=== PATIENT | female | born 1960 | race Caucasian/White ===

== ENCOUNTER → 2017-02-25 09:59 | Outpatient (CLI) | payer MEDICAID ==
[2016-03-12 18:25] VITALS: BMI 36.1
[~2017-02-25 09:59] MED LIST: ALBUTEROL0.63 MG/3 INH; BENZONATATE200 MG PO; CELEXA20 MG PO; CIPRO500 MG PO; DULERA 200 MCG8.8 GM INH; FLUTICASONE PRO16 GM NASAL; IPRAT-ALBUT 0.5-3 ML INH; LACTINEX GRANUL1 PCK PO; MEDROL DOSE PACK4 MG PO; MOBIC7.5 MG PO; MUCINEX DM ER1 EAC1 PO; NICODERM C1 PATCH .2 TRANSDERM; PERFOROMIS20 MCG/21 UPD; PREDNISONE20 MG PO; PROTONIX40 MG PO; PROVENTIL/2.5 MG/3 M INH; PULMICORT0.25 MG/1 UPD; PULMICORT0.5 MG/21 UPD; SINGULAIR10 MG PO; STERAPRED DS 1010 MG PO; SYMBICORT 16010.2 GM INH; TESSALON PERLE100 MG PO; TUDORZA PRESS400 MCG INH; TUMS500 MG PO; ZITHROMAX250 MG PO; ZYRTEC10 MG PO
== END | disposition home or self-care (01) ==
LOC: D.RT 09:59
DX: J44.9 Chronic obstructive pulmonary disease, unspecified (principal)

== ENCOUNTER 2018-01-28 21:21 | Inpatient (IN) | payer MEDICARE ==
[~2018-01-28] VITALS: Ht 162.6 cm; Wt 71.4 kg
[2018-01-28 22:12] LABS: BASOPHILS 0.9 % (0-2); EOSINOPHILS 3.9 % (0-7); HEMATOCRIT 39.3 % (36.0-48.0); HEMOGLOBIN 12.9 g/dL (12-16); LYMPHOCYTES 32.1 % (15-50); MCH 30.4 pg (26.0-34.0); MCHC 32.8 g/dL (31.0-37.0); MCV 92.7 fL (80.0-100.0); MEAN PLATELET VOLUME 9.7 fL (7.4-10.4); MONOCYTES 7.8 % (2-11); NEUTROPHILS 55.3 % (40-80); PLATELET COUNT 216 10x3/uL (130-400); RBC 4.24 10x6/uL (4.00-5.40); WBC 6.7 10x3/uL (4.8-10.8)
[2018-01-28 22:33] LABS: ALBUMIN 3.5 g/dL (3.4-5.0); ANION GAP 12.2 mmol/L (8-16); BILIRUBIN - TOTAL 0.26 mg/dL (0.2-1.3); CALCIUM 8.8 mg/dL (8.5-10.1); CARBON DIOXIDE 28.7 mmol/L (21.0-32.0); POTASSIUM - SERUM 3.9 mmol/L (3.5-5.1); PROTEIN - SERUM 7.2 g/dL (6.4-8.2)
[2018-01-28 22:52] LABS: CKMB 1.3 U/L (0.0-3.6); CREATINE KINASE 136 UL (21-215)
[2018-01-28 22:53] LABS: TROPONIN-I < 0.017 ng/mL (0.000-0.060)
[2018-01-29] MEDS ORDERED: ARNUITY ELLIP200 MCG INH (01:34)
[2018-01-29] MEDS ORDERED: ROPINIROLE HCL2 MG PO (01:35)
[2018-01-29] MEDS ORDERED: DALIRESP500 MCG PO (01:35)
[2018-01-29] MEDS ORDERED: PEPCID20 MG PO (01:37)
[2018-01-29] MEDS ORDERED: STIOLTO RESPIMAT4 GM INH (01:37)
[2018-01-29 02:17] VITALS: BP 123/72; BMI 36.1
[2018-01-29 04:00] VITALS: BP 109/62
[2018-01-29 08:57] VITALS: BP 120/60
[2018-01-29 09:57] VITALS: Ht 162.6 cm; Wt 71.4 kg
[2018-01-29 12:16] VITALS: BP 120/70
[2018-01-29 16:10] VITALS: BP 112/70
[2018-01-29 16:58] LABS: T4 THYROXIN - FREE 1.12 ng/dL (0.76-1.46); THYROID STIMULATING HORMONE 1.02 uIU/mL (0.36-3.74)
[2018-01-29 20:00] VITALS: BP 125/64
[2018-01-30 04:00] VITALS: BP 114/71
[2018-01-30 05:12] LABS: BASOPHILS 0 % (0-2); EOSINOPHILS 0 % (0-7); IMMATURE GRANULOCYTES 0.7 % (0-5); LYMPHOCYTES 6.6 % (15-50); MCH 29.8 pg (26.0-34.0); MCHC 32.4 g/dL (31.0-37.0); MCV 91.8 fL (80.0-100.0); MEAN PLATELET VOLUME 9.8 fL (7.4-10.4); MONOCYTES 5.2 % (2-11); NEUTROPHILS 87.5 % (40-80); PLATELET COUNT 219 10x3/uL (130-400); RBC 4.03 10x6/uL (4.00-5.40); RDW 12.9 % (11.5-14.5)
[2018-01-30 05:24] LABS: WBC 12.2 10x3/uL (4.8-10.8)
[2018-01-30 05:37] LABS: ANION GAP 13.7 mmol/L (8-16); CALCIUM 9.2 mg/dL (8.5-10.1); CARBON DIOXIDE 27.4 mmol/L (21.0-32.0); MAGNESIUM - SERUM 1.9 mg/dL (1.8-2.4); PHOSPHOROUS 3.3 mg/dL (2.5-4.9); POTASSIUM - SERUM 4.1 mmol/L (3.5-5.1)
[2018-01-30 09:35] VITALS: BP 118/63
[2018-01-30 12:10] LABS: APPEARANCE SLT CLOUDY (CLEAR); BILIRUBIN NEGATIVE (NEGATIVE); COLOR YELLOW (YELLOW); GLUCOSE NEGATIVE (NEGATIVE); KETONE NEGATIVE (NEGATIVE); NITRITE NEGATIVE (NEGATIVE); PROTEIN NEGATIVE (NEGATIVE); SPECIFIC GRAVITY 1.015 (1.005-1.020); UROBILINOGEN NORMAL (NORMAL)
[2018-01-30 18:42] VITALS: BP 121/63
[2018-01-30 20:00] VITALS: BP 120/72
[2018-01-31] VITALS: BP 130/73
[2018-01-31 04:00] VITALS: BP 150/80
[2018-01-31 06:08] LABS: ANION GAP 12.1 mmol/L (8-16); CALCIUM 9.4 mg/dL (8.5-10.1); CARBON DIOXIDE 26.9 mmol/L (21.0-32.0); CREATININE - SERUM 1.1 mg/dL (0.6-1.3)
[2018-01-31 06:09] LABS: BASOPHILS 0.1 % (0-2); EOSINOPHILS 0.1 % (0-7); HEMATOCRIT 36.8 % (36.0-48.0); HEMOGLOBIN 11.8 g/dL (12-16); IMMATURE GRANULOCYTES 1.4 % (0-5); LYMPHOCYTES 6.7 % (15-50); MCH 29.7 pg (26.0-34.0); MCHC 32.1 g/dL (31.0-37.0); MCV 92.7 fL (80.0-100.0); MONOCYTES 6.3 % (2-11); NEUTROPHILS 85.4 % (40-80); PLATELET COUNT 249 10x3/uL (130-400); RBC 3.97 10x6/uL (4.00-5.40); RDW 13.2 % (11.5-14.5)
[2018-01-31 06:20] LABS: WBC 15.6 10x3/uL (4.8-10.8)
[2018-01-31 09:35] VITALS: BP 119/69
[2018-01-31 12:26] VITALS: BP 130/67
[2018-01-31 16:57] VITALS: BP 138/76
[2018-01-31 21:06] VITALS: BP 133/67
[2018-02-01 01:14] VITALS: BP 131/87
[2018-02-01 05:05] VITALS: BP 152/84
[2018-02-01 05:13] LABS: BASOPHILS 0.1 % (0-2); EOSINOPHILS 0 % (0-7); HEMOGLOBIN 12.2 g/dL (12-16); IMMATURE GRANULOCYTES 2.8 % (0-5); LYMPHOCYTES 7.2 % (15-50); MCH 29.8 pg (26.0-34.0); MCHC 32.1 g/dL (31.0-37.0); MCV 92.7 fL (80.0-100.0); MEAN PLATELET VOLUME 9.6 fL (7.4-10.4); MONOCYTES 5.7 % (2-11); NEUTROPHILS 84.2 % (40-80); PLATELET COUNT 267 10x3/uL (130-400); RDW 13.1 % (11.5-14.5); WBC 14.8 10x3/uL (4.8-10.8)
[2018-02-01 05:34] LABS: CALCIUM 8.9 mg/dL (8.5-10.1); CARBON DIOXIDE 25.8 mmol/L (21.0-32.0); CREATININE - SERUM 1.2 mg/dL (0.6-1.3)
[2018-02-01 05:40] LABS: ANION GAP 15.3 mmol/L (8-16); POTASSIUM - SERUM 4.1 mmol/L (3.5-5.1)
[2018-02-01 08:27] VITALS: BP 145/82
[2018-02-01 11:12] VITALS: BP 133/62
[2018-02-01 16:18] VITALS: BP 136/76
[2018-02-01 19:00] VITALS: BP 139/72
[2018-02-02 01:10] VITALS: BP 116/60
[2018-02-02 05:28] VITALS: BP 127/64
[2018-02-02 08:11] LABS: BASOPHILS 0.1 % (0-2); EOSINOPHILS 0 % (0-7); HEMOGLOBIN 11.9 g/dL (12-16); IMMATURE GRANULOCYTES 3.2 % (0-5); LYMPHOCYTES 11.5 % (15-50); MCH 29.8 pg (26.0-34.0); MCHC 32.2 g/dL (31.0-37.0); MCV 92.7 fL (80.0-100.0); MEAN PLATELET VOLUME 9.6 fL (7.4-10.4); MONOCYTES 10.1 % (2-11); NEUTROPHILS 75.1 % (40-80); PLATELET COUNT 258 10x3/uL (130-400); RBC 3.99 10x6/uL (4.00-5.40); RDW 13.3 % (11.5-14.5); WBC 13.3 10x3/uL (4.8-10.8)
[2018-02-02 08:25] LABS: ANION GAP 9.6 mmol/L (8-16); CARBON DIOXIDE 29.9 mmol/L (21.0-32.0); CREATININE - SERUM 0.9 mg/dL (0.6-1.3); POTASSIUM - SERUM 3.5 mmol/L (3.5-5.1)
[2018-02-02 09:27] VITALS: BP 155/97
[2018-02-02 12:09] VITALS: BP 151/80
[2018-02-02] MEDS ORDERED: PROTONIX40 MG PO (14:33)
[2018-02-02] MEDS ORDERED: Levaquin PO (14:35)
[2018-02-02] MEDS ORDERED: PREDNISONE20 MG PO (14:35)
[2018-02-02 15:05] VITALS: BP 128/71
== END 2018-02-02 17:29 | disposition home or self-care (01) | DRG 177 ==
LOC: D.ER 21:21 → D.EDHOLD 23:11 → D.M2 23:11
PROVIDERS: Family Medicine; Internal Medicine Nephrology
DX: J15.6 Pneumonia due to other Gram-negative bacteria (principal); J96.21 Acute and chronic respiratory failure with hypoxia; J44.0 Chronic obstructive pulmonary disease with (acute) lower respiratory infection; F17.203 Nicotine dependence unspecified, with withdrawal; J44.1 Chronic obstructive pulmonary disease with (acute) exacerbation; J15.212 Pneumonia due to Methicillin resistant Staphylococcus aureus; F32.9 Major depressive disorder, single episode, unspecified; K21.9 Gastro-esophageal reflux disease without esophagitis

== ENCOUNTER → 2018-03-12 07:47 | Outpatient (CLI) | payer MEDICARE ==
[2018-01-29 09:57] VITALS: BMI 36.1
[~2018-03-12 07:47] MED LIST changes: +ARNUITY ELLIP200 MCG INH; +DALIRESP500 MCG PO; +Levaquin PO; +PEPCID20 MG PO; +ROPINIROLE HCL2 MG PO; +STIOLTO RESPIMAT4 GM INH
== END | disposition home or self-care (01) ==
LOC: D.RT 03-10 10:00 → D.RAD 03-10 11:00 → D.RT 07:47
DX: J44.9 Chronic obstructive pulmonary disease, unspecified (principal)

== ENCOUNTER 2018-06-10 07:00 | Inpatient (IN) | payer MEDICARE ==
[2018-06-09 11:09] LABS: BASOPHILS 0.4 % (0-2); HEMATOCRIT 40.5 % (36.0-48.0); HEMOGLOBIN 13.1 g/dL (12-16); IMMATURE GRANULOCYTES 0.1 % (0-5); LYMPHOCYTES 15.1 % (15-50); MCH 29.6 pg (26.0-34.0); MCHC 32.3 g/dL (31.0-37.0); MCV 91.6 fL (80.0-100.0); MONOCYTES 7.6 % (2-11); NEUTROPHILS 73.8 % (40-80); PLATELET COUNT 253 10x3/uL (130-400); RBC 4.42 10x6/uL (4.00-5.40); RDW 13.7 % (11.5-14.5); WBC 9.7 10x3/uL (4.8-10.8)
[2018-06-09 11:29] LABS: ANION GAP 12.5 mmol/L (8-16); CALCIUM 8.9 mg/dL (8.5-10.1); CARBON DIOXIDE 30.5 mmol/L (21.0-32.0)
[~2018-06-10] VITALS: Ht 162.6 cm; Wt 95.7 kg
--- NOTE | ~2018-06-10 | OP ---
PATIENT NAME: AYAKA BRANTLEY MEDICAL RECORD: [id number] :64 LOCATION:D.MS [id number] ADMISSION DATE:06/10/18 SURGEON: EDDIE PEDRO MD DATE OF OPERATION: 06/10/2018 PREOPERATIVE DIAGNOSES: 1. Right colon polyp. 2. Chronic obstructive pulmonary disease. 3. Asthma. 4. Tobacco dependence syndrome. 5. Morbid obesity. POSTOPERATIVE DIAGNOSES: 1. Right colon polyp. 2. Chronic obstructive pulmonary disease. 3. Asthma. 4. Tobacco dependence syndrome. 5. Morbid obesity. PROCEDURE: Hand-assisted laparoscopic right hemicolectomy. SURGEON: Eddie Pedro MD REPORT OF PROCEDURE: The patient's abdomen was prepped and draped in sterile fashion. A cutdown was made around the patient's umbilicus. Electrocautery was used to dissect through the subcutaneous tissues to penetrate the abdominal cavity. A GelPort was then inserted in the abdomen with a 5-mm trocar within it. We insufflated the abdomen and we were then able to place 5-mm trocars in the epigastrium in the right subcostal region under direct visualization. We then began our dissection of the right colon by taking down the white line of Toldt. We continued our dissection around to the hepatic flexure and release these attachments. As we released this, we noted there was some omentum that was adherent to the pelvis from previous surgery and these adhesions were released using electrocautery. We eventually were able to mobilize the colon completely medially including the small bowel. We then eviscerated the right colon, proximal transverse colon, and small bowel through the Gelport. The small bowel was transected about 5 cm proximal to the terminal ileum and the transverse colon was transected proximally. Both these were done with a 60 blue load VICTORINA stapler. The mesentery was taken down with sequential clamp and tie technique using interrupted 3-0 silks. We then sent this large bowel off for pathology. A vwbx-gv-ehsa anastomosis was performed using a 60 blue load VICTORINA stapler and the enterotomies were closed with a 30 blue load TA stapler. As we irrigated out the abdomen and inspected, it appeared that the bowel was twisted. We eventually eviscerated all the bowel out again and could see that the small bowel at the anastomosis had been twisted. During this portion of the procedure, there were a few rents made in the distal aspect of the small bowel mesentery. Any bleeding from these was treated with 3-0 silk ties. We eventually just took down the anastomosis, repositioned the bowel appropriately and assured that it was not twisted and then removed the distal 30 cm of small bowel where the mesenteric rents were present. The mesentery was taken down with sequential clamp and tie technique with 3-0 silks and the small bowel was transected with a 60 blue load VICTORINA stapler. We then performed a npeq-mi-ulcz anastomosis of the transverse colon to the small bowel using a 60 blue load VICTORINA stapler and the enterotomy was closed with a 30 blue load TA stapler. We oversewed the suture lines using Lemberted 3-0 silks. At this point, we OPERATIVE REPORT [id number] AYAKA BRANTLEY reinspected and saw that the bowel was resting in good position and was no longer twisted. There was no sign of any active bleeding at the conclusion of the case. We irrigated out the abdomen one last time. At this point, the midline fascia was closed with running #1 loop PDS times 2 and the skin incisions were all closed with apolinar. COMPLICATIONS: None. CONDITION: Stable. ANESTHESIA: General endotracheal. BLOOD LOSS: 100 mL. TRANSINT:[id number] Voice Confirmation ID: [id number] DOCUMENT ID: [id number] EDDIE PEDRO MD at 1110 CC: BHUPINDER HOFF MD [id number] DICTATION DATE: 06/10/18 1359 INFORMATICS EDUCATOR: 06/10/18 1440 ADM IN [facility] [id number] [place] [address]
[2018-06-10 08:28] VITALS: BP 101/64; BMI 36.3
[2018-06-10 14:34] VITALS: BP 98/52
[2018-06-10 16:09] VITALS: BP 106/67
[2018-06-10 20:00] VITALS: BP 99/47
[2018-06-11 04:00] VITALS: BP 102/46
[2018-06-11 06:40] LABS: BASOPHILS 0.1 % (0-2); EOSINOPHILS 0 % (0-7); IMMATURE GRANULOCYTES 0.3 % (0-5); LYMPHOCYTES 12.5 % (15-50); MCH 28.7 pg (26.0-34.0); MCV 92.4 fL (80.0-100.0); MEAN PLATELET VOLUME 9.5 fL (7.4-10.4); MONOCYTES 13.1 % (2-11); PLATELET COUNT 280 10x3/uL (130-400); WBC 10.4 10x3/uL (4.8-10.8)
[2018-06-11 06:54] LABS: RBC 3.14 10x6/uL (4.00-5.40)
[2018-06-11 07:32] LABS: ANION GAP 11.4 mmol/L (8-16); CALCIUM 7.8 mg/dL (8.5-10.1); CARBON DIOXIDE 28.2 mmol/L (21.0-32.0); POTASSIUM - SERUM 4.6 mmol/L (3.5-5.1)
[2018-06-11 08:13] VITALS: BP 78/48
[2018-06-11 12:04] VITALS: BP 78/43
[2018-06-11 14:21] VITALS: Ht 162.6 cm; Wt 95.7 kg
[2018-06-11 15:43] VITALS: BP 77/45
[2018-06-11 20:00] VITALS: BP 95/42
[2018-06-12 04:00] VITALS: BP 96/58
[2018-06-12 06:05] LABS: BASOPHILS 0.1 % (0-2); EOSINOPHILS 0 % (0-7); HEMATOCRIT 24.6 % (36.0-48.0); HEMOGLOBIN 7.6 g/dL (12-16); IMMATURE GRANULOCYTES 0.3 % (0-5); LYMPHOCYTES 8.8 % (15-50); MCH 28.9 pg (26.0-34.0); MCHC 30.9 g/dL (31.0-37.0); MCV 93.5 fL (80.0-100.0); MEAN PLATELET VOLUME 9.3 fL (7.4-10.4); MONOCYTES 9.6 % (2-11); NEUTROPHILS 81.2 % (40-80); PLATELET COUNT 226 10x3/uL (130-400); RBC 2.63 10x6/uL (4.00-5.40); RDW 14.1 % (11.5-14.5)
[2018-06-12 06:16] LABS: ANION GAP 10.6 mmol/L (8-16); CALCIUM 7.6 mg/dL (8.5-10.1); CARBON DIOXIDE 25.9 mmol/L (21.0-32.0); CREATININE - SERUM 1.1 mg/dL (0.6-1.3); POTASSIUM - SERUM 4.5 mmol/L (3.5-5.1)
[2018-06-12 06:20] LABS: WBC 14.6 10x3/uL (4.8-10.8)
[2018-06-12 08:24] VITALS: BP 94/48
[2018-06-12 12:18] VITALS: BP 113/64
[2018-06-12 15:52] VITALS: BP 98/65
[2018-06-12 21:00] VITALS: BP 124/66
[2018-06-13] VITALS (12 sets, daily range): BP systolic 104–158; BP diastolic 60–87
[2018-06-13 06:12] LABS: BASOPHILS 0.3 % (0-2); EOSINOPHILS 1.5 % (0-7); HEMATOCRIT 24.3 % (36.0-48.0); IMMATURE GRANULOCYTES 0.4 % (0-5); LYMPHOCYTES 9.8 % (15-50); MCH 29.4 pg (26.0-34.0); MCHC 30.9 g/dL (31.0-37.0); MCV 95.3 fL (80.0-100.0); MEAN PLATELET VOLUME 9.2 fL (7.4-10.4); MONOCYTES 9.3 % (2-11); NEUTROPHILS 78.7 % (40-80); PLATELET COUNT 216 10x3/uL (130-400); RBC 2.55 10x6/uL (4.00-5.40); RDW 14.2 % (11.5-14.5)
[2018-06-13 06:15] LABS: WBC 10.4 10x3/uL (4.8-10.8)
[2018-06-13 06:17] LABS: HEMOGLOBIN 7.5 g/dL (12-16)
[2018-06-13 06:30] LABS: CALCIUM 7.9 mg/dL (8.5-10.1); CARBON DIOXIDE 26.1 mmol/L (21.0-32.0); CHLORIDE - SERUM 108 mmol/L (98-107); GLUCOSE 76 mg/dL (74-106); POTASSIUM - SERUM 3.9 mmol/L (3.5-5.1); SODIUM 140 mmol/L (136-145); eGFR NON AFRICAN AMERICAN 78 mL/min (90-120)
[2018-06-13 06:32] LABS: CALC OSMOLALITY 277 mosm/kg (275-300); CREATININE - SERUM 0.8 mg/dL (0.6-1.3); UREA NITROGEN 12 mg/dL (7-18)
[2018-06-14] VITALS: BP 157/84
[2018-06-14 04:00] VITALS: BP 163/87
[2018-06-14 05:46] LABS: BASOPHILS 0.1 % (0-2); EOSINOPHILS 2.4 % (0-7); IMMATURE GRANULOCYTES 0.4 % (0-5); LYMPHOCYTES 12.3 % (15-50); MCH 28.7 pg (26.0-34.0); MCHC 31.6 g/dL (31.0-37.0); MEAN PLATELET VOLUME 9.7 fL (7.4-10.4); MONOCYTES 10.3 % (2-11); NEUTROPHILS 74.5 % (40-80); PLATELET COUNT 221 10x3/uL (130-400)
[2018-06-14 05:52] LABS: HEMATOCRIT 29.7 % (36.0-48.0); HEMOGLOBIN 9.4 g/dL (12-16); MCV 90.8 fL (80.0-100.0); RBC 3.27 10x6/uL (4.00-5.40)
[2018-06-14 06:15] LABS: CALC OSMOLALITY 275 mosm/kg (275-300); CALCIUM 8.2 mg/dL (8.5-10.1); CHLORIDE - SERUM 107 mmol/L (98-107); CREATININE - SERUM 0.7 mg/dL (0.6-1.3); GLUCOSE 71 mg/dL (74-106); POTASSIUM - SERUM 3.6 mmol/L (3.5-5.1); SODIUM 140 mmol/L (136-145); UREA NITROGEN 10 mg/dL (7-18); eGFR NON AFRICAN AMERICAN > 90 mL/min (90-120)
[2018-06-14 09:03] VITALS: BP 137/81
[2018-06-14] MEDS ORDERED: PERCOCET 5-3251 TAB PO (10:42)
== END 2018-06-14 15:49 | disposition home or self-care (01) | DRG 329 ==
LOC: D.MS 07:00 → D.SDCHOLD 07:00 → D.MS 14:06
PROVIDERS: Surgery
PROC: 0DTF0ZZ Resection of Right Large Intestine, Open Approach (ICD-10-PCS; principal; 2018-06-10 09:30)
DX: K63.5 Polyp of colon (principal); J96.21 Acute and chronic respiratory failure with hypoxia; J44.1 Chronic obstructive pulmonary disease with (acute) exacerbation; D62 Acute posthemorrhagic anemia; F17.200 Nicotine dependence, unspecified, uncomplicated; K21.9 Gastro-esophageal reflux disease without esophagitis; E86.0 Dehydration; E66.01 Morbid (severe) obesity due to excess calories; Z68.36 Body mass index [BMI] 36.0-36.9, adult

== ENCOUNTER → 2018-10-17 16:39 | Outpatient (CLI) | payer MEDICARE ==
[2018-06-11 14:21] VITALS: BMI 36.2
[~2018-10-17 16:39] MED LIST changes: +PERCOCET 5-3251 TAB PO
== END | disposition home or self-care (01) ==
LOC: D.MAMMO 13:00
DX: Z12.31 Encounter for screening mammogram for malignant neoplasm of breast (principal)

== ENCOUNTER 2019-01-21 13:26 | Inpatient (IN) | payer MEDICARE ==
[~2019-01-21] VITALS: Ht 162.6 cm; Wt 86.4 kg
[2019-01-21] MEDS ORDERED: SINEMET 25-2501 EACH PO (13:32)
[2019-01-21 13:56] LABS: BASOPHILS 0.8 % (0-2); HEMATOCRIT 40.9 % (36.0-48.0); HEMOGLOBIN 13.3 g/dL (12-16); IMMATURE GRANULOCYTES 0.2 % (0-5); LYMPHOCYTES 22.4 % (15-50); MCH 30.2 pg (26.0-34.0); MCHC 32.5 g/dL (31.0-37.0); MCV 92.7 fL (80.0-100.0); MEAN PLATELET VOLUME 9.4 fL (7.4-10.4); MONOCYTES 12.4 % (2-11); NEUTROPHILS 63.2 % (40-80); PLATELET COUNT 186 10x3/uL (130-400); RBC 4.41 10x6/uL (4.00-5.40); RDW 14.4 % (11.5-14.5); WBC 4.9 10x3/uL (4.8-10.8)
[2019-01-21 14:00] VITALS: BP 162/97
[2019-01-21 14:13] LABS: ALBUMIN 3.5 g/dL (3.4-5.0); ANION GAP 13.6 mmol/L (8-16); BILIRUBIN - TOTAL 0.16 mg/dL (0.2-1.3); CALCIUM 8.8 mg/dL (8.5-10.1); CARBON DIOXIDE 26.1 mmol/L (21.0-32.0); CREATININE - SERUM 0.9 mg/dL (0.6-1.3); POTASSIUM - SERUM 4.7 mmol/L (3.5-5.1); PROTEIN - SERUM 7.2 g/dL (6.4-8.2)
[2019-01-21 14:50] LABS: CKMB 1.4 U/L (0.0-3.6); CREATINE KINASE 115 UL (21-215); PRO BNP 58 pg/mL (0-125); TROPONIN-I 0.021 ng/mL (0.000-0.060)
[2019-01-21 15:00] VITALS: BP 119/74
[2019-01-21 15:59] LABS: APTT 24.5 SECONDS (22.8-39.4); INR 2.08 (0.85-1.17); PROTIME 22.7 SECONDS (11.6-15.0)
[2019-01-21 18:00] VITALS: BP 107/81
--- NOTE | 2019-01-21 18:00 | NUR ---
PROVIDED SANDWICH AND DRINK.
--- NOTE | 2019-01-21 19:00 | NUR ---
PT REPORT HANDED OFF TO FLORENCE MURILLO AT THIS TIME. PT STABLE, CALL LIGHT WITHIN REACH.
[2019-01-21 20:00] VITALS: BP 118/74
--- NOTE | 2019-01-21 21:15 | NUR ---
ADMITTED TO ROOM FROM ER ALERT AND ORIENTIATED, STATES HAVING DIFFICULTY BREATHING, USES O2 AT HOME, MILD EXP WHEEZING NOTED, O2 AT 2L NC, SEE ADMISSION ASSESSMENT, CALL LIGHT IN REACH
[2019-01-22] VITALS (7 sets, daily range): BP systolic 112–130; BP diastolic 60–80; Ht 162.6 cm; Wt 86.4 kg
[2019-01-22 06:43] LABS: BASOPHILS 0 % (0-2); EOSINOPHILS 0 % (0-7); HEMATOCRIT 38.6 % (36.0-48.0); HEMOGLOBIN 12.8 g/dL (12-16); LYMPHOCYTES 14.7 % (15-50); MCH 30.1 pg (26.0-34.0); MCHC 33.2 g/dL (31.0-37.0); MCV 90.8 fL (80.0-100.0); MEAN PLATELET VOLUME 9.8 fL (7.4-10.4); NEUTROPHILS 82.3 % (40-80); PLATELET COUNT 213 10x3/uL (130-400); RBC 4.25 10x6/uL (4.00-5.40); RDW 14.6 % (11.5-14.5)
[2019-01-22 06:44] LABS: WBC 3.3 10x3/uL (4.8-10.8)
[2019-01-22 07:02] LABS: ALBUMIN 3.3 g/dL (3.4-5.0); ALKALINE PHOSPHATASE 75 U/L (46-116); BILIRUBIN - TOTAL 0.21 mg/dL (0.2-1.3); CALC OSMOLALITY 278 mosm/kg (275-300); CALCIUM 8.8 mg/dL (8.5-10.1); CARBON DIOXIDE 24.8 mmol/L (21.0-32.0); CHLORIDE - SERUM 102 mmol/L (98-107); CREATININE - SERUM 0.8 mg/dL (0.6-1.3); GLUCOSE 131 mg/dL (74-106); MAGNESIUM - SERUM 2.1 mg/dL (1.8-2.4); POTASSIUM - SERUM 4.4 mmol/L (3.5-5.1); PROTEIN - SERUM 7.2 g/dL (6.4-8.2); SODIUM 137 mmol/L (136-145); UREA NITROGEN 22 mg/dL (7-18); eGFR NON AFRICAN AMERICAN 78 mL/min (90-120)
[2019-01-22 07:03] LABS: ALT (SGPT) 12 U/L (10-68)
--- NOTE | 2019-01-22 08:00 | NUR ---
MORNING ASSESSMENT COMPLETE. SEE ASSESSMENT FLOWSHEET FOR FURTHER DETAILS. PT LYING IN BED AAO X4 TO PERSON, PALCE, TIME, AND SITUATION. DENIES NEEDS AT THIS TIME. CL IN REACH.
--- NOTE | 2019-01-22 20:30 | NUR ---
AWAKE,ALERT.NO COMPLAINTS VOICED. RESP EVEN AND UNLABORED. NO DISTRESS NOTED. UP AD ROBERT IN ROOM. CL IN REACH
[2019-01-23 01:34] VITALS: BP 130/80
--- NOTE | 2019-01-23 03:35 | NUR ---
I have reviewed this patient and I concur with the Shift Assessment completed by the Licensed Practical Nurse today this shift.
[2019-01-23 04:46] LABS: BASOPHILS 0.3 % (0-2); EOSINOPHILS 0 % (0-7); HEMATOCRIT 38.7 % (36.0-48.0); HEMOGLOBIN 12.8 g/dL (12-16); IMMATURE GRANULOCYTES 0.3 % (0-5); LYMPHOCYTES 12.3 % (15-50); MCHC 33.1 g/dL (31.0-37.0); MCV 90.8 fL (80.0-100.0); MEAN PLATELET VOLUME 9.7 fL (7.4-10.4); MONOCYTES 4.4 % (2-11); NEUTROPHILS 82.7 % (40-80); PLATELET COUNT 223 10x3/uL (130-400); RBC 4.26 10x6/uL (4.00-5.40); RDW 14.4 % (11.5-14.5)
[2019-01-23 04:55] LABS: ALBUMIN 3.2 g/dL (3.4-5.0); BILIRUBIN - TOTAL 0.16 mg/dL (0.2-1.3); CALCIUM 8.5 mg/dL (8.5-10.1); CARBON DIOXIDE 29.5 mmol/L (21.0-32.0); CREATININE - SERUM 0.9 mg/dL (0.6-1.3); MAGNESIUM - SERUM 2.1 mg/dL (1.8-2.4); POTASSIUM - SERUM 4.5 mmol/L (3.5-5.1)
[2019-01-23 04:58] VITALS: BP 121/74
[2019-01-23 04:58] LABS: WBC 6.6 10x3/uL (4.8-10.8)
[2019-01-23 08:52] VITALS: BP 113/71
[2019-01-23 13:21] VITALS: BP 133/80
--- NOTE | 2019-01-23 15:00 | NUR ---
IV TO RIGHT AC UNABLE TO FLUSH. RESITED TO RIGHT FA X 1 STICK 22G PATIENT TOLERATED WELL
--- NOTE | 2019-01-23 15:55 | MORECARE ---
CASE MANAGEMENT DISCHARGE SUMMARY PATIENT: AYAKA BRANTLEY UNIT: [id number] ADM DATE: 01/21/19 AGE: 58 : 64 SEX: F ROOM/BED: D.2232 AUTHOR: TOR DUARTE PHYSICIAN: REFERRING PHYSICIAN: CLIFFORD OAKLEY DO DATE OF SERVICE: 01/23/19 Discharge Plan Patient Name: AYAKA BRANTLEY [facility] [facility] 1960 Planned Disposition: Home with Home Health Anticipated Discharge Date: Discharge Date: Expected LOS: Initial Reviewer: [email or web address] Initial Review Date: 01/23/2019 Generated: 01/23/19 4:54 pm DCPIA - Discharge Planning Initial Assessment Updated by [email or web address]: Zara William on 01/23/19 3:51 pm * Is the patient Alert and Oriented? Yes * How many steps to enter\exit or inside your home? 0/0 * PCP DR. OAKLEY * Pharmacy [facility] * Preadmission Environment Home Alone * ADLs Independent * Equipment Nebulizer Other Oxygen Rolling Walker * Other Equipment PORTABLE OXYGEN * List name and contact numbers for known caregivers / representatives who currently or will assist patient after discharge: james - [phone] * Verbal permission to speak to the caregivers and representatives has been obtained from the patient. Yes * Community resources currently utilized None * Additional services required to return to the preadmission environment? Yes * Can the patient safely return to the preadmission environment? Yes * Has this patient been hospitalized within the prior 30 days at any hospital? No Patient Name: AYAKA BRANTLEY Page [id number] at 1555 All edits/amendments must be made on the electronic document DICTATION DATE: 01/23/191553 CURED MEATS SUPERVISOR: GRACIA 01/23/191553 RPT#: [id number] DC DATE: STATUS: ADM IN [facility] [address] [place] [address] END OF REPORT
--- NOTE | 2019-01-23 16:03 | MORECARE ---
CASE MANAGEMENT DISCHARGE SUMMARY PATIENT: AYAKA BRANTLEY UNIT: [id number] ADM DATE: 01/21/19 AGE: 58 : 64 SEX: F ROOM/BED: D.2232 AUTHOR: TOR DUARTE PHYSICIAN: REFERRING PHYSICIAN: CLIFFORD OAKLEY DO DATE OF SERVICE: 01/23/19 Discharge Plan Patient Name: AYAKA BRANTLEY Facility: [facility]:[place] : 1960 Planned Disposition: Home with Home Health Anticipated Discharge Date: Discharge Date: Expected LOS: Initial Reviewer: [email or web address] Initial Review Date: 01/23/2019 Generated: 01/23/19 5:03 pm Comments DCP- Discharge Planning Updated by [email or web address]: Zara William on 01/23/19 2:[address] Patient Name: AYAKA BRANTLEY Admission Status: ER Accout number: [id number] Admission Date: 01-21-2019 : 1960 Admission Diagnosis: Attending: CLIFFORD OAKLEY Current LOS: 2 Anticipated DC Date: Planned Disposition: Home with Home Health Primary Insurance: MEDICARE A & B Discharge Planning Comments: CM met with patient to discuss discharge planning, she is alone in the room. States she lives alone. States her step father will drive her home on discharge. States she is independent with all ADL's and AIDL's. States it is becoming more difficult to do house hold chores. A list of private duty agencies provided. Explained they could fill out an application to see if she qualifies with her Medicaid for assistance. Discussed the availability of HH services, LEN for [facility] given. I called and spoke to Eun and they will see on Saturday. She states her nebulizer is broken. She gets her oxygen from [employer] but does not want to use them any more. LEN for [facility] signed. I called [facility] and they will fax paperwork for nebulizer. CM will continue to follow and assist with discharge planning/needs. Gravity Meter Observer: Zara William DCPIA - Discharge Planning Initial Assessment Updated by [email or web address]: Zara William on 01/23/19 3:51 pm * Is the patient Alert and Oriented? Yes * How many steps to enter\exit or inside your home? 0/0 * PCP DR. OAKLEY * Pharmacy [facility] [address] * Preadmission Environment Home Alone * ADLs Independent * Equipment Nebulizer Other Oxygen Rolling Walker * Other Equipment PORTABLE OXYGEN * List name and contact numbers for known caregivers / representatives who currently or will assist patient after discharge: Davion - [phone] * Verbal permission to speak to the caregivers and representatives has been obtained from the patient. Yes * Community resources currently utilized None * Additional services required to return to the preadmission environment? Yes * Can the patient safely return to the preadmission environment? Yes * Has this patient been hospitalized within the prior 30 days at any hospital? No External Providers External Provider: [facility] Next Contact Date: Service Request Date: Service Type: Resolution: Reviewer: Comments: Last DP export: 01/23/19 2:54 pm Patient Name: AYAKA BRANTLEY Page [id number] at 1603 All edits/amendments must be made on the electronic document DICTATION DATE: 01/23/19 160 DISTANCE EDUCATION DIRECTOR: GRACIA 01/23/19 160 RPT#: [id number] DC DATE: STATUS: ADM IN [facility] [address] [place] [address] END OF REPORT
--- NOTE | 2019-01-23 16:22 | MORECARE ---
CASE MANAGEMENT DISCHARGE SUMMARY PATIENT: AYAKA BRANTLEY UNIT: [id number] ADM DATE: 01/21/19 AGE: 58 : 64 SEX: F ROOM/BED: D.2232 AUTHOR: TOR DUARTE PHYSICIAN: REFERRING PHYSICIAN: CLIFFORD OAKLEY DO DATE OF SERVICE: 01/23/19 Discharge Plan Patient Name: AYAKA BRANTLEY Facility: [facility]:[place] : 1960 Planned Disposition: Home with Home Health Anticipated Discharge Date: Discharge Date: Expected LOS: Initial Reviewer: [id number] Initial Review Date: 01/23/2019 Generated: 01/23/19 5:22 pm Comments DCP- Discharge Planning Updated by [email or web address]: Zara William on 01/23/19 2:[address] Patient Name: AYAKA BRANTLEY Admission Status: ER Accout number: [id number] Admission Date: 01-21-2019 : 1960 Admission Diagnosis: Attending: CLIFFORD OAKLEY Current LOS: 2 Anticipated DC Date: Planned Disposition: Home with Home Health Primary Insurance: MEDICARE A & B Discharge Planning Comments: CM met with patient to discuss discharge planning, she is alone in the room. States she lives alone. States her step father will drive her home on discharge. States she is independent with all ADL's and AIDL's. States it is becoming more difficult to do house hold chores. A list of private duty agencies provided. Explained they could fill out an application to see if she qualifies with her Medicaid for assistance. Discussed the availability of HH services, LEN for [facility] given. I called and spoke to Eun and they will see on Saturday. She states her nebulizer is broken. She gets her oxygen from [employer] but does not want to use them any more. LEN for [facility] signed. I called [facility] and they will fax paperwork for nebulizer. CM will continue to follow and assist with discharge planning/needs. Integrated Circuit Layout Designer: Zara William DCPIA - Discharge Planning Initial Assessment Updated by [email or web address]: Zara William on 01/23/19 3:51 pm * Is the patient Alert and Oriented? Yes * How many steps to enter\exit or inside your home? 0/0 * PCP DR. OAKLEY * Pharmacy [facility] [address] * Preadmission Environment Home Alone * ADLs Independent * Equipment Nebulizer Other Oxygen Rolling Walker * Other Equipment PORTABLE OXYGEN * List name and contact numbers for known caregivers / representatives who currently or will assist patient after discharge: Davion - [phone] * Verbal permission to speak to the caregivers and representatives has been obtained from the patient. Yes * Community resources currently utilized None * Additional services required to return to the preadmission environment? Yes * Can the patient safely return to the preadmission environment? Yes * Has this patient been hospitalized within the prior 30 days at any hospital? No External Providers External Provider: [facility] Next Contact Date: Service Request Date: Service Type: Resolution: Reviewer: Comments: Coverage Notice Reviewer: [id number] Mason William Notice Issued Date-Time: 01/23/2019 16:05 Notice Type: Patient Choice Letter Notice Delivered To: Patient Relationship to Patient: Self Air Compressor Mechanic Name: Delivery Method: HAND - Hand Delivered Eliza Days: Prior Verbal Notification: Recipient Understood Notice: Yes Recipient Signature: Yes Med Rec Note Co-signed by Attending: Coverage Notice Comment: LEN for [facility] and [facility] for DME Last DP export: 01/23/19 3:03 pm Patient Name: AYAKA BRANTLEY Page [id number] at 1622 All edits/amendments must be made on the electronic document DICTATION DATE: 01/23/191620 DENTAL INSURANCE BILLER: GRACIA 01/23/191620 RPT#: [id number] DC DATE: STATUS: ADM IN [facility] [address] [place] [address] END OF REPORT
[2019-01-23 16:40] VITALS: BP 137/72
--- NOTE | 2019-01-23 19:15 | NUR ---
RECEIVED CARE FROM DAY NURSE. UP AMBULATING IN HALLS.
[2019-01-23 20:00] VITALS: BP 119/65
[2019-01-24] VITALS: BP 121/71
[2019-01-24 03:00] VITALS: BP 120/73
--- NOTE | 2019-01-24 06:05 | NUR ---
I have reviewed this patient and I concur with the Shift Assessment completed by the Licensed Practical Nurse today this shift.
[2019-01-24 06:39] LABS: BASOPHILS 0.1 % (0-2); EOSINOPHILS 0 % (0-7); HEMOGLOBIN 12.5 g/dL (12-16); IMMATURE GRANULOCYTES 0.7 % (0-5); LYMPHOCYTES 13.2 % (15-50); MCH 29.4 pg (26.0-34.0); MCHC 32.1 g/dL (31.0-37.0); MCV 91.8 fL (80.0-100.0); MEAN PLATELET VOLUME 9.7 fL (7.4-10.4); MONOCYTES 4.1 % (2-11); NEUTROPHILS 81.9 % (40-80); PLATELET COUNT 224 10x3/uL (130-400); RBC 4.25 10x6/uL (4.00-5.40); RDW 14.5 % (11.5-14.5)
[2019-01-24 07:04] LABS: ALBUMIN 3.1 g/dL (3.4-5.0); ALKALINE PHOSPHATASE 71 U/L (46-116); CALCIUM 8.3 mg/dL (8.5-10.1); CARBON DIOXIDE 26.4 mmol/L (21.0-32.0); CHLORIDE - SERUM 101 mmol/L (98-107); CREATININE - SERUM 0.8 mg/dL (0.6-1.3); POTASSIUM - SERUM 3.9 mmol/L (3.5-5.1); PROTEIN - SERUM 6.5 g/dL (6.4-8.2); SODIUM 139 mmol/L (136-145); UREA NITROGEN 26 mg/dL (7-18); eGFR NON AFRICAN AMERICAN 78 mL/min (90-120)
[2019-01-24 07:05] LABS: ALT (SGPT) 26 U/L (10-68); BILIRUBIN - TOTAL 0.09 mg/dL (0.2-1.3); CALC OSMOLALITY 287 mosm/kg (275-300); GLUCOSE 181 mg/dL (74-106)
--- NOTE | 2019-01-24 07:30 | NUR ---
PATIENT RECIEVED RESTING WITH EYES CLOSED, RESPIRATIONS REGULAR AND NONLABORED, CL IN REACH
[2019-01-24 09:07] VITALS: BP 129/72
[2019-01-24] MEDS ORDERED: TESSALON PERLE100 MG PO (11:06)
[2019-01-24] MEDS ORDERED: MUCINEX600 MG PO (11:07)
[2019-01-24] MEDS ORDERED: PREDNISONE10 MG PO (11:07)
[2019-01-24] MEDS ORDERED: LEVAQUIN750 MG PO (11:07)
--- NOTE | 2019-01-24 12:30 | NUR ---
IV REMOVED FROM LEFT WRIST WITH CATH INTACT, NO REDNESS OR EDEMA AT SITE. DISCHARGE INSTRUCTIONS GIVEN WITH PATIENT VOICING UNDERSTANDING. PATIENT AMBULATED TO PRIVATE CAR WITH PER HER REQUEST
--- NOTE | 2019-01-24 15:45 | MORECARE ---
CASE MANAGEMENT DISCHARGE SUMMARY PATIENT: AYAKA BRANTLEY UNIT: [id number] ADM DATE: 01/21/19 AGE: 58 : 64 SEX: F ROOM/BED: D.2232 AUTHOR: TOR DUARTE PHYSICIAN: REFERRING PHYSICIAN: CLIFFORD OAKLEY DO DATE OF SERVICE: 01/24/19 Discharge Plan Patient Name: AYAKA BRANTLEY Facility: [facility]:[place] : 1960 Planned Disposition: Home with Home Health Anticipated Discharge Date: 01/24/19 Discharge Date: 01/24/2019 Expected LOS: 3 Initial Reviewer: [email or web address] Initial Review Date: 01/23/2019 Generated: 01/24/19 4:44 pm Comments DCP- Discharge Planning Updated by [id number]: Zara William on 01/23/19 2:[address] Patient Name: AYAKA BRANTLEY Admission Status: ER Accout number: [id number] Admission Date: 01-21-2019 : 1960 Admission Diagnosis: Attending: CLIFFORD OAKLEY Current LOS: 2 Anticipated DC Date: Planned Disposition: Home with Home Health Primary Insurance: MEDICARE A & B Discharge Planning Comments: CM met with patient to discuss discharge planning, she is alone in the room. States she lives alone. States her step father will drive her home on discharge. States she is independent with all ADL's and AIDL's. States it is becoming more difficult to do house hold chores. A list of private duty agencies provided. Explained they could fill out an application to see if she qualifies with her Medicaid for assistance. Discussed the availability of HH services, LEN for [facility] given. I called and spoke to Eun and they will see on Saturday. She states her nebulizer is broken. She gets her oxygen from [employer] but does not want to use them any more. LEN for [facility] signed. I called [facility] and they will fax paperwork for nebulizer. CM will continue to follow and assist with discharge planning/needs. Medical Or Surgical Instrument Maker: Zara William DCPIA - Discharge Planning Initial Assessment Updated by [id number]: Zara William on 01/23/19 3:51 pm * Is the patient Alert and Oriented? Yes * How many steps to enter\exit or inside your home? 0/0 * PCP DR. OKALEY * Pharmacy [facility] [address] * Preadmission Environment Home Alone * ADLs Independent * Equipment Nebulizer Other Oxygen Rolling Walker * Other Equipment PORTABLE OXYGEN * List name and contact numbers for known caregivers / representatives who currently or will assist patient after discharge: Davion - [phone] * Verbal permission to speak to the caregivers and representatives has been obtained from the patient. Yes * Community resources currently utilized None * Additional services required to return to the preadmission environment? Yes * Can the patient safely return to the preadmission environment? Yes * Has this patient been hospitalized within the prior 30 days at any hospital? No Coverage Notice Reviewer: [id number] Mason William Notice Issued Date-Time: 01/23/2019 16:05 Notice Type: Patient Choice Letter Notice Delivered To: Patient Relationship to Patient: Self Food Service Substitute Name: Delivery Method: HAND - Hand Delivered Eliza Days: Prior Verbal Notification: Recipient Understood Notice: Yes Recipient Signature: Yes Med Rec Note Co-signed by Attending: Coverage Notice Comment: LEN for [facility] and [facility] for DME Last DP export: 01/23/19 3:22 pm Patient Name: AYAKA BRANTLEY Page [id number] at 1545 All edits/amendments must be made on the electronic document DICTATION DATE: 01/24/19 1544 PAYROLL BENEFITS CLERK: DM 01/24/19 1544 RPT#: [id number] DC DATE:01/24/19 STATUS: DIS IN [facility] [address] [place] [address] END OF REPORT
--- NOTE | 2019-01-24 15:52 | MORECARE ---
CASE MANAGEMENT DISCHARGE SUMMARY PATIENT: AYAKA BRANTLEY UNIT: [id number] ADM DATE: 01/21/19 AGE: 58 : 64 SEX: F ROOM/BED: D.2232 AUTHOR: TOR DUARTE PHYSICIAN: REFERRING PHYSICIAN: CLIFFORD OAKLEY DO DATE OF SERVICE: 01/24/19 Discharge Plan Patient Name: AYAKA BRANTLEY Facility: [facility]:[place] : 1960 Planned Disposition: Home with Home Health Anticipated Discharge Date: 01/24/19 Discharge Date: 01/24/2019 Expected LOS: 3 Initial Reviewer: [email or web address] Initial Review Date: 01/23/2019 Generated: 01/24/19 4:51 pm Comments DCP- Discharge Planning Updated by [email or web address]: Kimmie Nina on 01/24/19 2:[address] 1115 CM CHECKED WITH THE PATIENT. HER NEBULIZER HAD BEEN DELIVERED TO THE BEDSIDE. SHE WANTS DIFFERENT PORTABLE OXGEN. CM WILL F/U WITH [facility] ON SATURDAY. SHE HAS TRANSPORTATION TO HOME. DISCHARGING TO HOME W/ [facility]. FAXED DISCHARGE MED LIST AND INSTRUCTION. DCP- Discharge Planning Updated by [id number]: Zara William on 01/23/19 2:[address] Patient Name: AYAKA BRANTLEY Admission Status: ER Accout number: [id number] Admission Date: 01-21-2019 : 1960 Admission Diagnosis: Attending: CLIFFORD OAKLEY Current LOS: 2 Anticipated DC Date: Planned Disposition: Home with Home Health Primary Insurance: MEDICARE A & B Discharge Planning Comments: CM met with patient to discuss discharge planning, she is alone in the room. States she lives alone. States her step father will drive her home on discharge. States she is independent with all ADL's and AIDL's. States it is becoming more difficult to do house hold chores. A list of private duty agencies provided. Explained they could fill out an application to see if she qualifies with her Medicaid for assistance. Discussed the availability of HH services, LEN for [facility] given. I called and spoke to Eun and they will see on Saturday. She states her nebulizer is broken. She gets her oxygen from [employer] but does not want to use them any more. LEN for [facility] signed. I called [facility] and they will fax paperwork for nebulizer. CM will continue to follow and assist with discharge planning/needs. Business Account Manager: Zara William DCPIA - Discharge Planning Initial Assessment Updated by [id number]: Zara William on 01/23/19 3:51 pm * Is the patient Alert and Oriented? Yes * How many steps to enter\exit or inside your home? 0/0 * PCP DR. OAKLEY * Pharmacy [facility] [address] * Preadmission Environment Home Alone * ADLs Independent * Equipment Nebulizer Other Oxygen Rolling Walker * Other Equipment PORTABLE OXYGEN * List name and contact numbers for known caregivers / representatives who currently or will assist patient after discharge: james - [phone] * Verbal permission to speak to the caregivers and representatives has been obtained from the patient. Yes * Community resources currently utilized None * Additional services required to return to the preadmission environment? Yes * Can the patient safely return to the preadmission environment? Yes * Has this patient been hospitalized within the prior 30 days at any hospital? No Coverage Notice Reviewer: [id number] - Zara William Notice Issued Date-Time: 01/23/2019 16:05 Notice Type: Patient Choice Letter Notice Delivered To: Patient Relationship to Patient: Self Medical Manager Name: Delivery Method: HAND - Hand Delivered Eliza Days: Prior Verbal Notification: Recipient Understood Notice: Yes Recipient Signature: Yes Med Rec Note Co-signed by Attending: Coverage Notice Comment: LEN for [facility] and [facility] for DME Reviewer: [id number] - Kimmie Nina Notice Issued Date-Time: 01/24/2019 12:10 Notice Type: IM Discharge Notice Notice Delivered To: Patient Relationship to Patient: Self Medical Manager Name: Delivery Method: HAND - Hand Delivered Eliza Days: Prior Verbal Notification: Recipient Understood Notice: Yes Recipient Signature: Yes Med Rec Note Co-signed by Attending: Coverage Notice Comment: CM EXPLAINED DISCHARGE IMM. PATIENT WITH NO QUESTIONS OR CONCERNS. Last DP export: 01/24/19 2:44 pm Patient Name: AYAKA BRANTLEY Page 10911 at 1552 All edits/amendments must be made on the electronic document DICTATION DATE: 01/24/19 1551 GRIP BOSS: GRACIA 01/24/19 1551 RPT#: [id number] DC DATE:01/24/19 STATUS: DIS IN [facility] [address] [facility] [place] [place] [address] END OF REPORT
== END 2019-01-24 12:30 | disposition home health service (06) | DRG 189 ==
LOC: D.ER 13:26 → D.EDHOLD 16:20 → D.MS 19:21
PROVIDERS: Emergency Medicine; Family Medicine; ADMIT Family Medicine; ATTEND Family Medicine
DX: J96.21 Acute and chronic respiratory failure with hypoxia (principal); J44.1 Chronic obstructive pulmonary disease with (acute) exacerbation; F17.203 Nicotine dependence unspecified, with withdrawal; J96.11 Chronic respiratory failure with hypoxia; K21.9 Gastro-esophageal reflux disease without esophagitis

== ENCOUNTER 2019-10-06 10:57 | Inpatient (IN) | payer MEDICARE, MEDICAID ==
[~2019-10-06] VITALS: Ht 162.6 cm; Wt 93.0 kg
[2019-10-06] VITALS (7 sets, daily range): BP systolic 104–146; BP diastolic 60–79; BMI 35.2
[~2019-10-06 10:57] MED LIST changes: +LEVAQUIN750 MG PO; +MUCINEX600 MG PO; +PREDNISONE10 MG PO; +SINEMET 25-2501 EACH PO
[2019-10-06] MEDS ORDERED: VITAMIN D31000 UNI2 PO (11:01)
[2019-10-06] MEDS ORDERED: MAG-OXIDE400 MG PO (11:01)
[2019-10-06] MEDS ORDERED: VITAMIN E100 UNIT PO (11:02)
[2019-10-06] MEDS ORDERED: VITAMIN B-2100 MG PO (11:02)
[2019-10-06 11:40] LABS: CALC OSMOLALITY 282 mosm/kg (275-300); CALCIUM 8.9 mg/dL (8.5-10.1); CARBON DIOXIDE 30.5 mmol/L (21.0-32.0); CHLORIDE - SERUM 105 mmol/L (98-107); CREATININE - SERUM 0.9 mg/dL (0.6-1.3); POTASSIUM - SERUM 3.8 mmol/L (3.5-5.1); SODIUM 141 mmol/L (136-145); UREA NITROGEN 19 mg/dL (7-18); eGFR NON AFRICAN AMERICAN 68 mL/min (90-120)
[2019-10-06 11:43] LABS: BASOPHILS 0.1 % (0-2); EOSINOPHILS 0.6 % (0-7); GLUCOSE 94 mg/dL (74-106); HEMATOCRIT 40.2 % (36.0-48.0); HEMOGLOBIN 12.9 g/dL (12-16); IMMATURE GRANULOCYTES 0.9 % (0-5); MCH 30.4 pg (26.0-34.0); MCHC 32.1 g/dL (31.0-37.0); MCV 94.6 fL (80.0-100.0); MEAN PLATELET VOLUME 9.2 fL (7.4-10.4); MONOCYTES 9.4 % (2-11); PLATELET COUNT 251 10x3/uL (130-400); RBC 4.25 10x6/uL (4.00-5.40); RDW 13.8 % (11.5-14.5); WBC 14.2 10x3/uL (4.8-10.8)
[2019-10-06 11:49] LABS: APTT 22.5 SECONDS (22.8-39.4); PROTIME 12.7 SECONDS (11.6-15.0)
[2019-10-06 11:57] LABS: ALBUMIN 3.4 g/dL (3.4-5.0); ALKALINE PHOSPHATASE 64 U/L (46-116); ALT (SGPT) 19 U/L (10-68); BILIRUBIN - TOTAL 0.39 mg/dL (0.2-1.3); CREATINE KINASE 36 UL (21-215); PRO BNP 196 pg/mL (0-125); PROTEIN - SERUM 6.4 g/dL (6.4-8.2); TROPONIN-I < 0.017 ng/mL (0.000-0.060)
--- NOTE | 2019-10-06 17:29 | MORECARE ---
CASE MANAGEMENT DISCHARGE SUMMARY PATIENT: AYAKA BRANTLEY UNIT: [id number] ADM DATE: 10/06/19 AGE: 59 : 64 SEX: F ROOM/BED: D.2210 AUTHOR: FELICIADOC PHYSICIAN: REFERRING PHYSICIAN: EMILIANO TANNER MD DATE OF SERVICE: 10/06/19 Discharge Plan Patient Name: AYAKA BRANTLEY Facility: [facility]:[place] : 1960 Planned Disposition: Home Anticipated Discharge Date: 10/08/19 Discharge Date: Expected LOS: 2 Initial Reviewer: [email or web address] Initial Review Date: 10/06/2019 Generated: 10/06/19 6:29 pm DCP- Discharge Planning Updated by [email or web address]: Radha Garza on 10/06/19 4:[address] DC PLAN: Return home with family. ANTICIPATED DC NEEDS: Denied known dc needs. CM met with patient to complete initial dc planning assessment. CM educated patient on the CM role and verbal consent given by patient to complete assessment. CM verified patient's address, phone number, and emergency contact phone numbers. Patient lives at home with a family member. At discharge patient plans to return home and feels this is a safe discharge. CM discussed availability of home health, rehab services, and medical equipment. Patient denied known discharge needs at this time. Transportation provider at discharge will be Mary Ricardo, or Jamey. CM will continue to follow and will assist as needed with dc plans/needs. Radha Garza RN, [facility] DCPIA - Discharge Planning Initial Assessment Updated by [email or web address]: Radha Garza on 10/06/19 5:26 pm * Is the patient Alert and Oriented? Yes * How many steps to enter\exit or inside your home? * PCP Dr. Kenny * Pharmacy [facility] [employer] [address] * Preadmission Environment Home with Family * ADLs Independent * Equipment Cane Nebulizer Oxygen Rolling Walker * List name and contact numbers for known caregivers / representatives who currently or will assist patient after discharge: Mary [facility] [phone] * Verbal permission to speak to the caregivers and representatives has been obtained from the patient. Yes * Community resources currently utilized None * Additional services required to return to the preadmission environment? No * Can the patient safely return to the preadmission environment? Yes * Has this patient been hospitalized within the prior 30 days at any hospital? No Patient Name: AYAKA BRANTLEY Page 12858 at 1729 All edits/amendments must be made on the electronic document DICTATION DATE: 10/06/191728 HYDRAULIC JACK MECHANIC: GRACIA 10/06/191728 RPT#: [id number] DC DATE: STATUS: ADM IN [facility] [address] [place] [address] END OF REPORT
[2019-10-07 00:59] VITALS: BP 140/76
[2019-10-07 05:34] VITALS: BP 128/54
[2019-10-07 06:51] LABS: BASOPHILS 0.1 % (0-2); EOSINOPHILS 0 % (0-7); HEMATOCRIT 37.2 % (36.0-48.0); HEMOGLOBIN 11.7 g/dL (12-16); IMMATURE GRANULOCYTES 1.7 % (0-5); LYMPHOCYTES 7.8 % (15-50); MCH 29.8 pg (26.0-34.0); MCHC 31.5 g/dL (31.0-37.0); MCV 94.9 fL (80.0-100.0); MEAN PLATELET VOLUME 9.9 fL (7.4-10.4); MONOCYTES 9.4 % (2-11); RBC 3.92 10x6/uL (4.00-5.40); RDW 13.9 % (11.5-14.5); WBC 12.1 10x3/uL (4.8-10.8)
[2019-10-07 07:00] LABS: ANION GAP 11.9 mmol/L (8-16); CARBON DIOXIDE 29.9 mmol/L (21.0-32.0); POTASSIUM - SERUM 3.8 mmol/L (3.5-5.1)
--- NOTE | 2019-10-07 07:00 | NUR ---
ALERT AND ORIENTED, RESTING IN BED WITH EYES OPEN. NO C/O PAIN. NO S/S OF ACUTE DISTRESS NOTED. ON 2L O2, NC. IV TO LEFT WRIST, NS @ KVO. SITE PATENT WITHOUT REDNESS OR SWELLING. DENIES ANY NEEDS AT THIS TIME. CALL LIGHT IN REACH. WILL CONTINUE TO MONITOR.
[2019-10-07 07:01] LABS: PLATELET COUNT 192 10x3/uL (130-400)
[2019-10-07 08:49] VITALS: BP 130/76
[2019-10-07 10:59] VITALS: Ht 162.6 cm; Wt 93.0 kg
[2019-10-07 12:46] VITALS: BP 115/67
[2019-10-07 17:03] VITALS: BP 126/73
--- NOTE | 2019-10-07 18:04 | NUR ---
I have reviewed this patient and I concur with the Shift Assessment completed by the Licensed Practical Nurse today this shift.
--- NOTE | 2019-10-07 19:45 | NUR ---
UP IN BED WITH TV ON, ABLE TO VOICE ALL NEEDS. DENIES PAIN AT THIS TIME. SHOWS NO S/S OF ANY ACUTE DISTRESS AT THIS TIME. WILL NOTE ANY CHANGE.
[2019-10-07 20:00] VITALS: BP 124/76
[2019-10-08] VITALS: BP 152/69
--- NOTE | 2019-10-08 01:30 | NUR ---
I have reviewed this patient and I concur with the Shift Assessment completed by the Licensed Practical Nurse today this shift.
[2019-10-08 04:00] VITALS: BP 125/62
--- NOTE | 2019-10-08 05:13 | NUR ---
IV IS NOT PATENT AT THIS TIME. MULTIPLE ATTEMPTS TO RESITE WERE UNSUCCESSFUL. PATIENT IS NOT UPSET, BUT NOT WILLING TO CONTINUE AT THIS TIME. SHE STATES SHE IS RUNNING OUT OF SPOTS, AGREES TO VASCULAR ACCESS CONSULT. WILL NOTE ANY CHANGE.
--- NOTE | 2019-10-08 05:54 | NUR ---
IV OUT, STILL NOT WANTING TO BE RESITED BY FLOOR NURSES, SOLUMEDROL UNABLE TO BE GIVEN.
--- NOTE | 2019-10-08 06:15 | NUR ---
REQUESTED PRN COUGH MEDICINE AT 2330, GIVEN PER ORDERS. NO S/S OF ANY ACUTE DISTRESS. WILL NOTE ANY CHANGE.
[2019-10-08 06:47] LABS: ANION GAP 10.1 mmol/L (8-16); CALCIUM 8.8 mg/dL (8.5-10.1); CARBON DIOXIDE 31.6 mmol/L (21.0-32.0); POTASSIUM - SERUM 3.7 mmol/L (3.5-5.1)
--- NOTE | 2019-10-08 07:05 | NUR ---
ALERT AND ORIENTED, RESTING IN BED WITH EYES CLOSED. RESPIRATIONS EVEN AND UNLABORED. NO C/O PAIN. NO S/S OF ACUTE DISTRESS NOTED. ON 2L O2, NC. NO IV ACCESS. DENIES ANY NEEDS AT THIS TIME. CALL LIGHT IN REACH. WILL CONTINUE TO MONITOR.
[2019-10-08 07:31] LABS: HEMATOCRIT 38.7 % (36.0-48.0); HEMOGLOBIN 12.4 g/dL (12-16); MCH 30.3 pg (26.0-34.0); MCV 94.6 fL (80.0-100.0); MEAN PLATELET VOLUME 9.6 fL (7.4-10.4); PLATELET COUNT 229 10x3/uL (130-400); RBC 4.09 10x6/uL (4.00-5.40); RDW 13.8 % (11.5-14.5)
[2019-10-08 07:45] LABS: WBC 15.5 10x3/uL (4.8-10.8)
[2019-10-08 08:00] VITALS: BP 116/69
--- NOTE | 2019-10-08 09:35 | NUR ---
KYLER FROM VASCULAR ACCESS PLACE MIDLINE TO LEFT UPPER ARM. CHANGED TUBING FOR FLUIDS.
[2019-10-08 09:58] LABS: ANISOCYTOSIS OCC; LYMPHOCYTES 20 % (15-50); MONOCYTES 8 % (2-11); NEUTROPHILS 71 % (40-80); PLATELET ESTIMATE NORMAL; PLATELET MORPHOLOGY PLT CLUMPS PRESENT
--- NOTE | 2019-10-08 10:32 | NUR ---
I have reviewed this patient and I concur with the Shift Assessment completed by the Licensed Practical Nurse today this shift.
[2019-10-08 12:00] VITALS: BP 121/58
[2019-10-08 17:04] VITALS: BP 108/57
--- NOTE | 2019-10-08 18:51 | NUR ---
ALERT AND ORIENTED, RESTING IN BED WITH EYES OPEN. NO C/O PAIN. NO S/S OF ACUTE DISTRESS NOTED. DENIES ANY NEEDS AT THIS TIME. CALL LIGHT IN REACH. WILL CONTINUE TO MONITOR.
[2019-10-08 20:00] VITALS: BP 103/58
--- NOTE | 2019-10-08 21:30 | NUR ---
A/O WITH NO SIGNS OF DISTRESS. MIDLINE TO THE LT UPPER ARM, DRESSING INTACT. SITE IS FREE OF SWELLING OR REDNESS. NC @5L. DENIES PAIN OR OTHER NEEDS AT THIS TIME. CONTINUE PLAN OF CARE.
[2019-10-09] VITALS: BP 103/55
[2019-10-09 04:00] VITALS: BP 107/62
[2019-10-09 06:32] LABS: BASOPHILS 0.1 % (0-2); EOSINOPHILS 0 % (0-7); HEMOGLOBIN 12.2 g/dL (12-16); LYMPHOCYTES 6.5 % (15-50); MCHC 31.3 g/dL (31.0-37.0); MCV 95.8 fL (80.0-100.0); MEAN PLATELET VOLUME 9.1 fL (7.4-10.4); MONOCYTES 6.2 % (2-11); NEUTROPHILS 83.2 % (40-80); PLATELET COUNT 267 10x3/uL (130-400); RBC 4.07 10x6/uL (4.00-5.40); RDW 13.9 % (11.5-14.5); WBC 14.4 10x3/uL (4.8-10.8)
[2019-10-09 06:45] LABS: ANION GAP 12.2 mmol/L (8-16); CALCIUM 8.4 mg/dL (8.5-10.1); CARBON DIOXIDE 30.5 mmol/L (21.0-32.0); POTASSIUM - SERUM 3.7 mmol/L (3.5-5.1)
--- NOTE | 2019-10-09 08:45 | NUR ---
PATIENT IN BED WITH EYES CLOSED RESTING QUIETLY. CALL LIGHT WITHIN REACH.
[2019-10-09 09:02] VITALS: BP 122/63
--- NOTE | 2019-10-09 09:09 | MORECARE ---
CASE MANAGEMENT DISCHARGE SUMMARY PATIENT: AYAKA BRANTLEY UNIT: [id number] ADM DATE: 10/06/19 AGE: 59 : 64 SEX: F ROOM/BED: D.2210 AUTHOR: FELICIADOC PHYSICIAN: REFERRING PHYSICIAN: EMILIANO TANNER MD DATE OF SERVICE: 10/09/19 Discharge Plan Patient Name: AYAKA BRANTLEY Facility: [facility]:[place] : 1960 Planned Disposition: Home Anticipated Discharge Date: 10/08/19 Discharge Date: Expected LOS: 2 Initial Reviewer: [email or web address] Initial Review Date: 10/06/2019 Generated: 10/09/19 10:09 am Comments DCP- Discharge Planning Updated by [email or web address]: Gladys Mcneal on 10/09/19 8:[address] IMM SERVED AND EXPLAINED, PATIENT HAS ALL DME NEEDED, DID NOT WANT HOME HEALTH THIS TIME. LEN FOR [facility] (SHE IS ALREADY A PATIENT WITH THEM) CM TO FOLLOW AND ASSIST NEEDED DCP- Discharge Planning Updated by [id number]: Radha Garza on 10/06/19 4:[address] DC PLAN: Return home with family. ANTICIPATED DC NEEDS: Denied known dc needs. CM met with patient to complete initial dc planning assessment. CM educated patient on the CM role and verbal consent given by patient to complete assessment. CM verified patient's address, phone number, and emergency contact phone numbers. Patient lives at home with a family member. At discharge patient plans to return home and feels this is a safe discharge. CM discussed availability of home health, rehab services, and medical equipment. Patient denied known discharge needs at this time. Transportation provider at discharge will be Mary Ricardo, or Jamey. CM will continue to follow and will assist as needed with dc plans/needs. Radha Garza RN, CCM DCPIA - Discharge Planning Initial Assessment Updated by [id number]: Radha Garza on 10/06/19 5:26 pm * Is the patient Alert and Oriented? Yes * How many steps to enter\exit or inside your home? * PCP Dr. Kenny * Pharmacy [facility] [employer] on [address] * Preadmission Environment Home with Family * ADLs Independent * Equipment Cane Nebulizer Oxygen Rolling Walker * List name and contact numbers for known caregivers / representatives who currently or will assist patient after discharge: Mary valdez - [phone] * Verbal permission to speak to the caregivers and representatives has been obtained from the patient. Yes * Community resources currently utilized None * Additional services required to return to the preadmission environment? No * Can the patient safely return to the preadmission environment? Yes * Has this patient been hospitalized within the prior 30 days at any hospital? No Coverage Notice Reviewer: [email or web address] Mason Mcneal Notice Issued Date-Time: 10/09/2019 9:00 Notice Type: Patient Choice Letter Notice Delivered To: Patient Relationship to Patient: Sawmill Worker Name: Delivery Method: HAND - Hand Delivered Eliza Days: Prior Verbal Notification: Recipient Understood Notice: Yes Recipient Signature: Yes Med Rec Note Co-signed by Attending: Coverage Notice Comment: LEN LAWRENCEBINA Reviewer: [id number] Mason Mcneal Notice Issued Date-Time: 10/09/2019 9:00 Notice Type: IM Discharge Notice Notice Delivered To: Patient Relationship to Patient: Sawmill Worker Name: Delivery Method: HAND - Hand Delivered Eliza Days: Prior Verbal Notification: Recipient Understood Notice: Yes Recipient Signature: Yes Med Rec Note Co-signed by Attending: Coverage Notice Comment: Last DP export: 10/06/19 4:29 Patient Name: AYAKA BRANTLEY Page [phone] at 0909 All edits/amendments must be made on the electronic document DICTATION DATE: 10/09/19908 AIRPORT SECURITY SCREENER: GRACIA 10/09/19908 RPT#: [id number] DC DATE: STATUS: ADM IN [facility] [address] [place] [address] END OF REPORT
[2019-10-09] MEDS ORDERED: OMNICEF300 MG PO (09:34)
[2019-10-09] MEDS ORDERED: PREDNISONE10 MG PO (09:46)
--- NOTE | 2019-10-09 10:00 | NUR ---
MIDLINE REMOVED AT THIS TIME. PATIENT STATED THAT IT IS BURNING AND HURTING. NOT RED OR SWOLLEN. NO LEAKING. REMOVED WITH CATH TIP INTACT. PATIENT IS BEING DISCHARGED.
--- NOTE | 2019-10-09 11:45 | NUR ---
PATIENT RECIEVED DISCHARGE INSTRUCTIONS. VERBALIZED UNDERSTANDING. NO QUESTIONS AT THIS TIME. EXPLAINED TO PATIENT TO SPORTS BOOK WRITER PRESCRIPTIONS AT [facility]. VERBALIZED UNDERSTANDING. CALL LIGHT WITHIN REACH. WAITING FOR TRANSPORTATION FOR DC.
--- NOTE | 2019-10-12 12:22 | MORECARE ---
CASE MANAGEMENT DISCHARGE SUMMARY PATIENT: AYAKA BRANTLEY UNIT: [id number] ADM DATE: 10/06/19 AGE: 59 : 64 SEX: F ROOM/BED: D.2210 AUTHOR: FELICIADOC PHYSICIAN: REFERRING PHYSICIAN: EMILIANO TANNER MD DATE OF SERVICE: 10/12/19 Discharge Plan Patient Name: AYAKA BRANTLEY Facility: [facility]:[place] : 1960 Planned Disposition: Home Anticipated Discharge Date: 10/08/19 Discharge Date: 10/09/2019 Expected LOS: 2 Initial Reviewer: [email or web address] Initial Review Date: 10/06/2019 Generated: 10/12/19 1:22 pm Comments DCP- Discharge Planning Updated by [id number]: Gladys Mcneal on 10/09/19 8:[address] IMM SERVED AND EXPLAINED, PATIENT HAS ALL DME NEEDED, DID NOT WANT HOME HEALTH THIS TIME. LEN FOR [facility] (SHE IS ALREADY A PATIENT WITH THEM) CM TO FOLLOW AND ASSIST NEEDED DCP- Discharge Planning Updated by [email or web address]: Radha Garza on 10/06/19 4:[address] DC PLAN: Return home with family. ANTICIPATED DC NEEDS: Denied known dc needs. CM met with patient to complete initial dc planning assessment. CM educated patient on the CM role and verbal consent given by patient to complete assessment. CM verified patient's address, phone number, and emergency contact phone numbers. Patient lives at home with a family member. At discharge patient plans to return home and feels this is a safe discharge. CM discussed availability of home health, rehab services, and medical equipment. Patient denied known discharge needs at this time. Transportation provider at discharge will be Mary Ricardo, or Jamey. CM will continue to follow and will assist as needed with dc plans/needs. Radha Garza RN, [facility] DCPIA - Discharge Planning Initial Assessment Updated by [email or web address]: Radha Garza on 10/06/19 5:26 pm * Is the patient Alert and Oriented? Yes * How many steps to enter\exit or inside your home? * PCP Dr. Kenny * Pharmacy [facility] on [address] * Preadmission Environment Home with Family * ADLs Independent * Equipment Cane Nebulizer Oxygen Rolling Walker * List name and contact numbers for known caregivers / representatives who currently or will assist patient after discharge: Mary valdez [phone] * Verbal permission to speak to the caregivers and representatives has been obtained from the patient. Yes * Community resources currently utilized None * Additional services required to return to the preadmission environment? No * Can the patient safely return to the preadmission environment? Yes * Has this patient been hospitalized within the prior 30 days at any hospital? No Coverage Notice Reviewer: [id number] Mason Mcneal Notice Issued Date-Time: 10/09/2019 9:00 Notice Type: Patient Choice Letter Notice Delivered To: Patient Relationship to Patient: Global President Name: Delivery Method: HAND - Hand Delivered Eliza Days: Prior Verbal Notification: Recipient Understood Notice: Yes Recipient Signature: Yes Med Rec Note Co-signed by Attending: Coverage Notice Comment: LEN LAWRENCEBINA Reviewer: [email or web address] Mason Mcneal Notice Issued Date-Time: 10/09/2019 9:00 Notice Type: IM Discharge Notice Notice Delivered To: Patient Relationship to Patient: Global President Name: Delivery Method: HAND - Hand Delivered Eliza Days: Prior Verbal Notification: Recipient Understood Notice: Yes Recipient Signature: Yes Med Rec Note Co-signed by Attending: Coverage Notice Comment: Last DP export: 10/09/19 8:09 Patient Name: AYAKA BRANTLEY Page [id number] at 1222 All edits/amendments must be made on the electronic document DICTATION DATE: 10/12/19 1222 SURVEY ANALYST: GRACIA 10/12/19 1222 RPT#: [id number] DC DATE:10/09/19 STATUS: DIS IN [facility] [address] [place] [address] END OF REPORT
== END 2019-10-09 13:04 | disposition home or self-care (01) | DRG 189 ==
LOC: D.ER 10:57 → D.MS 12:31
PROVIDERS: Family Medicine; ADMIT Internal Medicine Nephrology; ATTEND Internal Medicine Nephrology
PROC: 05HC33Z Insertion of Infusion Device into Left Basilic Vein, Percutaneous Approach (ICD-10-PCS; principal; 2019-10-08)
DX: J96.21 Acute and chronic respiratory failure with hypoxia (principal); F33.1 Major depressive disorder, recurrent, moderate; J44.1 Chronic obstructive pulmonary disease with (acute) exacerbation; J44.0 Chronic obstructive pulmonary disease with (acute) lower respiratory infection; J20.9 Acute bronchitis, unspecified; G25.81 Restless legs syndrome; M19.90 Unspecified osteoarthritis, unspecified site; G47.00 Insomnia, unspecified; K21.9 Gastro-esophageal reflux disease without esophagitis

== ENCOUNTER → 2019-11-16 10:18 | Outpatient (CLI) | payer MEDICARE ==
[2019-10-07 10:59] VITALS: BMI 35.2
[~2019-11-16 10:18] MED LIST changes: +MAG-OXIDE400 MG PO; +OMNICEF300 MG PO; +VITAMIN B-2100 MG PO; +VITAMIN D31000 UNI2 PO; +VITAMIN E100 UNIT PO
== END | disposition home or self-care (01) ==
LOC: D.RT 09-03 11:00 → D.RAD 09-03 11:45 → D.RT 10:18
PROVIDERS: ATTEND Internal Medicine Pulmonary Disease
DX: J44.9 Chronic obstructive pulmonary disease, unspecified (principal); Z87.01 Personal history of pneumonia (recurrent)

== ENCOUNTER → 2020-01-06 09:02 | Outpatient (CLI) | payer MEDICARE ==
[2019-10-07 10:59] VITALS: BMI 35.2
--- NOTE | ~2020-01-06 | EC ---
PATIENT:AAYKA BRANTLEY DATE OF SERVICE: 01/06/20 SEX: F MEDICAL RECORD: [id number] DATE OF : 64 [facility] AGE OF PATIENT: 59 ADMISSION DATE: 01/06/20 REFERRING PHYSICIAN: INTERPRETING PHYSICIAN: JUSTINO CROOKS MD ECHOCARDIOGRAM REPORT ECHO CHARGES 4 ECHO COMPLETE Date: 01/06/20 CLINICAL DIAGNOSIS: ANGINA/PALPITATIONS/SOB/MARIE H/O COPD ECHOCARDIOGRAPHIC MEASUREMENTS (adult normal given) AC root (d.<3.7cm) 2.8 cm LV Septum d (<1.2 cm> 1.0 cm Valve Excursion 1.7 cm LV Septum (systole) 1.2 cm Left Atria (s.<4.0cm> 3.7 cm LVPW d(<1.2cm) 0.9 cm RV (d.<2.3cm) 2.1 cm LVPW (sytole) 1.6 cm LV diastole(<5.6CM) 4.6 cm MV E-F(>70mm/sec) cm LV systole 2.7 cm LVOT Diameter 1.9 cm MV exc.(>10mm) cm Est.ejection fraction (50-75%) % DOPPLER: LVIT cm/sec A 47.0 cm/sec E 58.0 cm/sec LA cm/sec RVSP 15.0 mmHg LVOT 106 cm/sec AOP1/2T m/s Asc. Ao 133 cm/sec RVOT 58.0 cm/sec RA cm/sec PA 104 cm/sec AV Gradient Peak 7.0 mmHg AV Mean 3.5 mmHg AV Area 2.4 cm MV Gradient Peak 2.9 mmHg MV Mean 1.2 mmHg MV Area cm COMMENTS: OP - HC Ticket Scheduler: 1 TABATHA MORRISON Marketing Intelligence Manager: 1 Dr. Crooks TAPE# PACS Pericardial Effusion N DATE OF SERVICE: ECHOCARDIOGRAM FINDINGS: 1. Left ventricular chamber size is within normal limits. Left ventricular systolic function is normal. Overall ejection fraction estimated at 55%. 2. Left atrium, right atrium, right ventricle chamber size is within normal limits. 3. Valvular structures have normal structure and motion. ECHOCARDIOGRAM REPORT [id number] AYAKA BRANTLEY 4. Doppler interrogation reveals no significant valvular insufficiency or stenosis and pulmonary systolic pressure estimated at 15 mmHg. 5. No evidence of pericardial effusion or left ventricular thrombus. TRANSINT:[id number] Voice Confirmation ID: [id number] DOCUMENT ID: [id number] JUSTINO CROOKS MD CC: [id number] DICTATION DATE: 01/08/20 1105 CAR SHUNTER: 01/08/20 1301 DEP CLI 01/06/20 [facility] [address] [place] [address]
--- NOTE | ~2020-01-06 | ST ---
PATIENT:AYAKA BRANTLEY MEDICAL RECORD: [id number] SEX: F LOCATION:[facility] ORDER #: ADMISSION DATE: 01/06/20 AGE OF PATIENT: 59 REFERRING PHYSICIAN: INTERPRETING PHYSICIAN: JUSTINO BECKMAN MD DATE OF SERVICE: 01/06/2020 INDICATION: Angina and shortness of breath. TECHNIQUE: She was exercised on standard Lexiscan protocol with 30 mCi of sestamibi injected at peak stress, 11 mCi used previously for rest images. FINDINGS: Gated SPECT reveals preserved ejection fraction at 63% with good wall motion and thickening and brightening throughout all segments. SPECT imaging Cardiolite was used as myocardial perfusion agent. There is reversibility anteriorly, apically, and inferiorly. This includes the basal, mid, apical anterior segments, the apex itself, basal, mid, apical, inferior segments. The degree of reversibility is moderate. The amount of myocardium involved is large. OVERALL IMPRESSION: This is a high risk abnormal nuclear stress test, reversible ischemia anteriorly, apically, and inferiorly suggestive of hemodynamically significant coronary artery disease. TRANSINT:[id number] Voice Confirmation ID: [id number] DOCUMENT ID: [id number] JUSTINO BECKMAN MD CC: CLIFFORD OAKLEY [id number] DICTATION DATE: 01/08/20 1256 GULLET SLITTER: 01/08/20 1405 DEP CLI 01/06/20 [facility] [address] [place] [address]
== END | disposition home or self-care (01) ==
LOC: D.HCCECHO 09:02
PROVIDERS: ATTEND Internal Medicine Interventional Cardiology
DX: I20.9 Angina pectoris, unspecified (principal); R00.2 Palpitations

== ENCOUNTER 2020-01-20 08:31 | Outpatient (CLI) | payer MEDICARE ==
[~2020-01-20] VITALS: Ht 162.6 cm; Wt 96.2 kg
--- NOTE | ~2020-01-20 | OP ---
PATIENT NAME: AYAKA BRANTLEY MEDICAL RECORD: [id number] :64 LOCATION:D.[facility] ADMISSION DATE: SURGEON: JUSTINO BECKMAN MD DATE OF OPERATION: 01/20/2020 DATE OF SERVICE: 01/20/2020 PROCEDURES: 1. Left heart catheterization. 2. Selective coronary angiography. 3. Left ventriculogram. INDICATION: Chest pain, abnormal nuclear stress test. DESCRIPTION OF PROCEDURE: After informed consent was obtained and after detailed explanation of risks, benefits as well as alternative therapies, the patient elected to proceed with angiogram and heart catheterization. The right femoral area was prepped and draped in normal sterile fashion. Right femoral artery was cannulated via modified Seldinger technique with placement of 5-Uzbek sheath. All catheters exchanged through this sheath. FINDINGS: Left ventriculogram was performed in standard 30-degree RIZVI view, reveals good cardiac wall motion, ejection fraction estimated at 60%. SELECTIVE CORONARY ANGIOGRAPHY: Left main, left anterior descending, left circumflex, and right coronary artery are all smooth-walled vessels with no angiographic evidence of coronary artery disease. OVERALL IMPRESSION: 1. No angiographic evidence of coronary artery disease. 2. Normal left heart pressures. 3. Normal left ventricular systolic function. Chest pain is noncardiac in etiology. Stress test was false positive. No other cardiac workup needs to be ascertained. TRANSINT:[id number] Voice Confirmation ID: [id number] DOCUMENT ID: [id number] JUSTINO BECKMAN MD CC: [id number] DICTATION DATE: 01/20/20 1114 GRADES 6 THROUGH 8 TEACHER: 01/20/20 1345 [facility] [address] [place] [address]
--- NOTE | ~2020-01-20 | HEMODYNAMI ---
PATIENT:AYAKA BRANTLEY MEDICAL RECORD: [id number] : 64 LOCATION:[facility] ADMISSION DATE: 01/20/20 Generatedon:01/20/202011:17 Patient name: AYAKA BRANTLEY Patient #: [id number] : 1960 Date of study: 01/20/2020 Page: Of Hemodynamic Procedure Report Patient Data Patient Demographics Procedure consent was obtained First Name: AYAKA Gender: Female Last Name: KARON : 1960 [facility] Initial: REJI Age: 59 year(s) Patient #: [id number] Race: Unknown SSN: [id number] Additional ID: [id number] Contact details Address: [address] [place] [address] circle State: [place] City: [place] Zip code: [address] Past Medical History Performed procedures and imaging results Date Procedure Procedure Results Comments 01/06/2020 Standard exercise Positive->High stress test risk Allergies Allergen Reaction Date Comments Reported Other allergy 01/20/2020 PCN, HYDROCODONE Admission Admission Data Admission Date: 01/20/2020 Admission Time: 8:31 Admit Source: Other Insurance Payor: Medicare, Medicaid [facility] #: [id number] Height (in.): 24.8 BSA: 1.02 (m2) Height (cm.): 63 BMI: 249.14 (kg/m2) Weight (lbs.): 218 Weight (kg.): 98.88 Lab Results Lab Result Date: 01/20/2020 Lab Result Time: 0:00 Biochemistry Name Units Result Min Max BUN mg/dl 17 --(---*)-- 7 18 Creatinine mg/dl 1 --(--*-)-- 0.6 1.3 eGFR ml/min 61.32951 *-(----)-- 90 120 NONAFRICAN CBC Name Units Result Min Max Hematocrit % 40.2 -*(----)-- 42 54 Hemoglobin g/dl 12.5 *-(----)-- 13.5 17.5 Procedure Procedure Types Cath Procedure Diagnostic Procedure [facility] w/Coronaries Sedation Charges Moderate Sedation up to 15 minutes Procedure Description Procedure Date Procedure Date: 01/20/2020 Procedure Start Time: 11:03 Procedure End Time: 11:15 Procedure Staff Name Function Rafa Crooks MD Performing Physician Chasity Trores RT Monitor Omar Pace RT Scrub Mellissa Fernández RN Nurse Indication Abnormal stress perfusion study with ischemia in the inferior wall Angina Shortness of breath COPD Procedure Data Cath Procedure Fluoroscopy Diagnostic fluoroscopy Total fluoroscopy Time: 1 time: 1 min min Diagnostic fluoroscopy Total fluoroscopy dose: 177 dose: 177 mGy mGy Contrast Material Contrast Material Type Amount (ml) Isovue 300 30 Entry Location Entry Primary Successful Side Size Upsize Upsize Entry Closure Succes sful Closure Location (Fr) 1 (Fr) 2 (Fr) Remarks Device Remarks Femoral Right 5 Fr Exoseal artery Estimated blood loss: 5 ml Diagnostic catheters Device Type Used For End Catheter Placement MULTIPACK Pigtail 5 Fr Procedure catheter MULTIPACK JL 4.0 5Fr Procedure catheter MULTIPACK 3DRC 5Fr Procedure catheter Procedure Complications No complications Procedure Medications Medication Administration Route Dosage 0.9% NaCl I.V. 100 ml/hr Oxygen etCO2 Nasal cannula 2 l/min Lidocaine 2% added to field 20 Heparin Flush Bag added to field 2 bags (1000units/500ml NS) Versed I.V. 2 mg Fentanyl I.V. 50 mcg Versed I.V. 2 mg Fentanyl I.V. 50 mcg Hemodynamics Rest BSA: 1.02 (m2) HGB: 12.5 (g/dl) O2 Consumption: Estimated: 90.72 (ml/min) O2 Con sumption indexed: Estimated:88.94 (ml/min/m) Heart Rate: 52 (bpm) Snapshots Pre Cath Intra NCS Post Cath Vital Signs Time Heart Resp SPO2 etCO2 NIBP Rhythm Pain Sedation Rate (ipm) (%) (mmHg) (mmHg) Status Level (bpm) 10:44:45 55 24 98 39 119/73(95) SB 0 (11) 10(A) , No pain 10:49:05 60 21 98 40.5 98/64(72) NSR 0 (11) 10(A) , No pain 10:53:19 56 23 100 30.7 101/55(74) SB 0 (11) 10(A) , No pain 10:57:33 59 15 100 25.5 95/51(65) SB 0 (11) 10(A) , No pain 11:01:49 60 13 100 27.7 88/47(68) NSR 0 (11) 10(A) , No pain 11:05:57 56 15 100 19.5 103/62(77) SB 0 (11) 9(A) , No pain 11:10:11 59 16 100 33 113/60(79) SB 0 (11) 10(A) , No pain 11:14:29 59 19 100 34.5 112/62(80) SB 0 (11) 10(A) , No pain Medications Time Medication Route Dose Verified Delivered Reason Notes Eff ectiveness by by 10:46:35 0.9% NaCl I.V. 100 Rafa Mellissa used for ml/hr Daksha Fernández hand rigger 10:46:42 Oxygen etCO2 2 Rafa Mellissa used for Nasal l/min Daksha Fernández procedure cannula RN 10:46:47 Lidocaine 2% added 20ml Rafa Rafa for local to vial Daksha Crooks MD anesthetic field 10:46:52 Heparin Flush added 2 Rafa Rafa used for Bag to bags Daksha Crooks MD procedure (1000units/500ml field NS) 10:56:06 Versed I.V. 2 mg Rafa Mellissa for Daksha Fernández sedation RN 10:56:18 Fentanyl I.V. 50 Rafa Mellissa for mcg Daksha Fernández sedation RN 11:02:08 Versed I.V. 2 mg Rafa Mellissa for Daksha Fernández sedation RN 11:02:12 Fentanyl I.V. 50 Rafa Mellissa for mcg Daksha Fernández sedation aircraft pneudraulics repairer Log Time Note 10:08:38 Informed consent obtained and on chart 10:14:39 Admit Source: Other 10:14:45 Insurance Payor : Medicare, Medicaid 10:16:14 Patient Height : 24.8 inches 10:16:23 Patient Weight : 218 lbs 10:17:08 Diagnostic Cath Status : Elective 10:17:34 Indication : Abnormal stress perfusion study with ischemia in the inferior wall 10:17:46 Indication : Angina 10:17:53 Indication : Shortness of breath 10:17:59 Indication : COPD 10:18:21 ACC Patient presents with Stable Angina CCS Anginal Class 3--Marked limitation of physical activity, angina occurs with ordinary activity.. 10:18:24 ACCPatient has been prescribed/administered the following anti-anginal medication within the last 2 weeks: Beta Megan 10:18:28 Procedure Status Elective Heart Cath (OP). 10:18:41 H&P Date Dictated: 12/23/2019 Within 30 days and on chart., H&P Addendum completed by physician on day of procedure. (MUST COMPLETE FOR ALL OUTPATIENTS). 10:32:41 Chasity Torres RT(R) sent for patient. Start room use. 10:35:51 Time tracking: Regular hours (M-F 7:00 - 5:00) 10:35:54 Plan of Care:Hemodynamics will remain stable., Cardiac rhythm will remain stable., Comfort level will be maintained., Respiratory function will remain adequate., Patient/ family verbilizes understanding of procedure., Procedure tolerated without complication., Recovers from procedure without complications.. 10:36:15 Patient received from Pre/Post Procedure Room to CCL 1 Alert and oriented. Tansferred to table in Supine position. 10:36:17 Warm blankets applied, and casper hugger turned on for patient comfort. 10:36:17 Warm blankets applied, and casper hugger turned on for patient comfort. 10:36:18 Correct patient and procedure confirmed by team. 10:36:18 ECG and BP/O2 sat monitors applied to patient. 10:36:20 Pre-procedure instructions explained to patient. 10:36:20 Pre-op teaching completed and patient verbalized understanding. 10:36:22 Family in waiting room. 10:36:23 Patient NPO since Midnight. 10:43:23 Vital chart was started 10:43:25 Baseline sample Acquired. 10:43:29 Rhythm: sinus bradycardia 10:43:30 Full Disclosure recording started 10:43:41 Patient allergic to Other allergyPCN, HYDROCODONE 10:43:47 Is patient on blood thinner?No 10:43:49 Patient diabetic? No. 10:43:51 Patient not . Patient is over age 55. 10:43:54 Previous problem with sedation/anesthesia? No ? 10:43:56 Snore? Yes 10:43:57 Sleep apnea? No 10:43:58 Deviated septum? No 10:43:58 Opens mouth fully? Yes 10:43:59 Sticks out tongue? Yes 10:44:15 Airway obstruction? Yes ASTHMA, COPD, EMPHYSEMA, PNUEMONIA 10:44:21 Dentures? Yes PARTIAL OUT 10:44:26 Pre procedure: right dorsailis pedis pulse 1+ Palpable, but thready & weak; easily obliterated 10:44:33 Modified Dm's test Ulnar > 7 seconds. 10:44:34 Patient pain scale 0/10 ?. 10:44:41 IV patent on arrival in left hand with 0.9% NaCl at [facility]. 10:45:49 Lab Result : BUN 17 mg/dl 10:45:49 Lab Result : Creatinine 1 mg/dl 10:45:49 Lab Result : eGFR NONAFRICAN 61.54952 ml/min 10:45:49 Lab Result : Hemoglobin 12.5 g/dl 10:45:49 Lab Result : Hematocrit 40.2 % 10:46:17 Lab results completed and on chart. 10:46:35 0.9% NaCl 100 ml/hr I.V. was administered by Mellissa Fernández RN; used for procedure; Verbal order read back and verified. 10:46:42 Oxygen 2 l/min etCO2 Nasal cannula was administered by Mellissa Fernández RN; used for procedure; Verbal order read back and verified. 10:46:47 Lidocaine 2% 20ml vial added to field was administered by Rafa Crooks MD; for local anesthetic; Verbal order read back and verified. 10:46:52 Heparin Flush Bag (1000units/500ml NS) 2 bags added to field was administered by Rafa Crooks MD; used for procedure; Verbal order read back and verified. 10:48:24 Pt refused to be given Benadryl d/t restless legs. Explained risk of unknown allergy and reaction to iodinated contrast when Benadryl not taken. Pt verbalizes understanding and Benadryl withheld.. 10:50:13 Stress Test: yes; abnormal ANTERIORLY, APICAL, INFERIOR 10:50:18 Right groin area was prepped with chlora-prep and draped in sterile fashion 10:50:18 Alarms reviewed by RAnni N. 10:50:19 Sharps counted by scrub and verified by R.N. 10:52:07 Use device set Femoral Dx 10:52:08 ACIST Syringe (28761) opened to sterile field. 10:52:08 Bag Decanter (2002S) opened to sterile field. 10:52:09 ACIST Hand Control (52964) opened to sterile field. 10:52:10 ACIST Manifold (33431) opened to sterile field. 10:52:11 Tegaderm 4 x 4 (1626W) opened to sterile field. 10:52:12 Medline Cath Pack ([id number]) opened to sterile field. 10:52:13 DIAGNOSTIC Multipack 5Fr catheter set (FS5586) opened to sterile field. 10:52:14 SHEATH 5FR [place] (DWT815) opened to sterile field. 10:52:14 EMERALD Guide Wire (884-497) opened to sterile field. 10:55:06 --------ALL STOP TIME OUT------ 10:55:07 Final Timeout: patient, procedure, and site verified with staff and physician. All members of the team are in agreement. 10:55:08 Right groin site verified by team. 10:55:11 Fire Safety Assessment: A--An alcohol-based skin anteseptic being used preoperatively., C--Open oxygen or nitrous oxide is being used., D--An ESU, laser, or fiber-optic light is being used. 10:55:14 Physical assessment completed. ASA score P 3 - A patient with severe systemic disease as per Rafa Crooks MD. 10:55:18 2) 60-89 Mildly reduced kidney function, and other findings (as for stage 1) point to kidney disease. 10:55:21 Maximum allowable contrast dose (3.7 X eGFR X 0.75)169 ml. 10:55:24 Sedation plan: IV Moderate Sedation Medication:Versed, Fentanyl 10:56:06 Versed 2 mg I.V. was administered by Mellissa Fernández RN; for sedation; Verbal order read back and verified. 10:56:18 Fentanyl 50 mcg I.V. was administered by Mellissa Fernández RN; for sedation; Verbal order read back and verified. 10:59:44 Zero performed for pressure channel P1 11:02:08 Versed 2 mg I.V. was administered by Mellissa Fernández RN; for sedation; Verbal order read back and verified. 11:02:12 Fentanyl 50 mcg I.V. was administered by Mellissa Fernández RN; for sedation; Verbal order read back and verified. 11:03:29 Procedure started. 11:03:37 Local anesthetic to right femoral artery with Lidocaine 2% by Rafa Crooks MD.INITIAL ACCESS ONLY 11:08:10 A 5 Fr sheath was inserted into the Right Femoral artery 11:08:39 A MULTIPACK Pigtail 5 Fr catheter was advanced over the wire and used for Procedure. 11:08:41 LV gram done using RIZVI 11::43 Injector settings: Ml/sec: 10, Volume: 20, 11:09:11 EF : 50 % 11:09:12 Catheter removed. 11:09:21 A MULTIPACK JL 4.0 5Fr catheter was advanced over the wire and used for Procedure. 11:09:55 LCA angiography performed. 11:09:56 Catheter removed. 11:11:38 A MULTIPACK 3DRC 5Fr catheter was advanced over the wire and used for Procedure. 11:11:56 RCA angiography performed. 11:11:58 Catheter removed. 11:12:02 EXOSEAL 5Fr (EX500) opened to sterile field. 11:12:18 Sheath removed intact; hemostasis achieved with Exoseal to the Right Femoral artery. 11:12:23 Procedure ended.(Physican Out) 11:12:42 Fluoroscopy time 01.00 minutes. 11:12:45 Fluoroscopy dose: 177 mGy 11:12:45 Flurop Dose total: 177 11:12:50 Dose Area Product 40729 mGy/cm. 11:12:53 Contrast amount:Isovue 300 30ml. 11:12:56 Maximum allowable dose exceeded? No. 11:12:57 Sharps counted by scrub and verified by R.N. 11:13:00 Post-op/insertion site Right Femoral artery dressed using a 4 x 4 and Tegaderm. 11:14:06 Post-procedure physical assessment completed. ASA score P 3 - A patient with severe systemic disease as per Rafa Crooks MD. 11:14:15 Post procedure rhythm: sinus bradycardia 11:14:22 Estimated blood loss: 5 ml 11:14:23 Post procedure instruction explained to patient.Patient verbalizes understanding. 11:14:24 Patient needs reinforcement of post procedure teaching. 11:14:50 Procedure type changed to Cath procedure, Diagnostic procedure, LHC, LHC w/Coronaries, Sedation Charges, Moderate Sedation up to 15 minutes 11:15:11 Procedure and supply charges have been captured, reviewed, submitted and are correct. 11:15:14 Procedure Complication : No complications 11:15:17 Vital chart was stopped 11:15:19 [facility] Findings: mild to moderate CAD (<70%) 11:15:22 Operative report dictated upon procedure completion. 11:15:22 See physician's report for complete and final results. 11:15:24 Report given to Pre/Post Procedure Room. 11:15:26 Patient transfered to Pre/Post Procedure Room with Bed. 11:15:28 Procedure ended. 11:15:28 Full Disclosure recording stopped 11:15:31 End room use (Document Last) 11:16:42 End room use (Document Last) 11:17:04 End room use (Document Last) Device Usage Item Name Manufacture Quantity Catalog Hospital Part Current Minimal L ot# / Number Charge Number Stock Stock Serial# Code ACIST Acist 1 70970 [id number] 533788 410820 20 Syringe Medical (78190) Systems Inc Bag Microtek 1 2001S 453049 21656 213648 5 Decanter Medical Inc. (2001S) ACIST Hand Acist 1 52528 715234 678015 104923 5 Control Medical (19953) Systems Inc ACIST Acist 1 79839 995487 376606 998199 5 Manifold Medical (35531) Systems Inc Tegaderm 4 3M 1 1626W 619627 012789 167230 5 x 4 (1626W) Medline Medline 1 [id number] 535461 92627 065569 5 Cath Pack ([id number]) DIAGNOSTIC Cardinal 1 LH9742 474558 67368 971983 30 Multipack Health 5Fr catheter set (OF0441) SHEATH 5FR Terumo 1 ATD964 624434 583005 293843 5 [place] (MGD735) EMERALD Cardinal 1 502-455 813916 023193 684945 5 Guide Wire Health (584-369) MULTIPACK Cardinal 1 671601 5 Pigtail 5 Health Fr catheter MULTIPACK Cardinal 1 214617 5 JL 4.0 5Fr Health catheter MULTIPACK Cardinal 1 397817 5 3DRC 5Fr Health catheter EXOSEAL 5Fr Cardinal 1 EX500 171840 199042 219143 10 (EX500) Health Signature Audit [place] Stage Time Signature Unsigned Intra-Procedure 01/20/2020 Chasity Torres 11:16:42 AM RT(R) Intra-Procedure 01/20/2020 Mellissa Fernández 11:17:04 AM RN Intra-Procedure 01/20/2020 Rafa Crooks 11:17:32 AM [address] [place] [address]
[2020-01-20] MEDS ORDERED: BYSTOLIC20 MG PO (09:58)
[2020-01-20] MEDS ORDERED: ZYRTEC10 MG PO (09:58)
[2020-01-20] MEDS ORDERED: TRELEGY ELLIPT1 EACH INH (10:04)
[2020-01-20] MEDS ORDERED: AZELASTINE HCL6 ML EACH EYE (10:04)
[2020-01-20 10:11] VITALS: BP 103/61; Ht 162.6 cm; Wt 96.2 kg
[2020-01-20 10:25] LABS: BASOPHILS 1.6 % (0-2); EOSINOPHILS 3.9 % (0-7); HEMATOCRIT 40.2 % (36.0-48.0); HEMOGLOBIN 12.5 g/dL (12-16); IMMATURE GRANULOCYTES 0.1 % (0-5); LYMPHOCYTES 27.6 % (15-50); MCH 29.3 pg (26.0-34.0); MCHC 31.1 g/dL (31.0-37.0); MCV 94.1 fL (80.0-100.0); MEAN PLATELET VOLUME 9.4 fL (7.4-10.4); NEUTROPHILS 58.8 % (40-80); PLATELET COUNT 246 10x3/uL (130-400); RBC 4.27 10x6/uL (4.00-5.40); WBC 6.7 10x3/uL (4.8-10.8)
[2020-01-20 10:37] LABS: ANION GAP 9.1 mmol/L (8-16); CALCIUM 9.1 mg/dL (8.5-10.1); CARBON DIOXIDE 32.5 mmol/L (21.0-32.0); CHOL - HDL RATIO 3.7 ratio (2.3-4.1); LDL-HDL RATIO 1.8 ratio (1.5-3.5); POTASSIUM - SERUM 4.6 mmol/L (3.5-5.1)
--- NOTE | 2020-01-20 11:23 | NUR ---
PT ARRIVED BY STRETCHER. PLACED ON MONITORS. ASSESSMENT COMPLETED. VSS. CALL LIGHT WITHIN REACH.
--- NOTE | 2020-01-20 11:38 | NUR ---
RIGHT GROIN DRESSING C/D/I. NO S/S OF HEMATOMA NOTED. CALL LIGHT WITHIN REACH. RIGHT GROIN DRESSING C/D/I. NO S/S OF HEMATOMA NOTED.
--- NOTE | 2020-01-20 12:08 | NUR ---
RIGHT GROIN DRESSING C/D/I. NO S/S OF HEMATOMA NOTED. CALL LIGHT WITHIN REACH. VSS.
--- NOTE | 2020-01-20 12:15 | NUR ---
RIGHT GROIN DRESSING C/D/I. NO S/S OF HEMATOMA NOTED. PT'S HEAD OF BED INC TO 30 DEGREES. TOLERATED WELL. SET UP WITH SANDWICH TRAY AND DRINK. NO OTHER NEEDS AT THIS TIME.
--- NOTE | 2020-01-20 12:45 | NUR ---
RIGHT GROIN DRESSING C/D/I. NO S/S OF HEMATOMA NOTED. CALL LIGHT WITHIN REACH.
--- NOTE | 2020-01-20 13:15 | NUR ---
PIV D/C'D WITH CATH TIP INTACT. TOLERATED WELL. RIGHT GROIN DRESSING C/D/I. NO S/S OF HEMATOMA NOTED. CALL LIGHT WITHIN REACH. PT INSTRUCTED TO GET UP AND DRESSED AT THIS TIME. NO ASSISTANCE NEEDED.
--- NOTE | 2020-01-20 13:20 | NUR ---
PT TO RESTROOM. VOIDED WITHOUT DIFFICULTY. RIGHT GROIN DRESSING C/D/I. NO S/S OF HEMATOMA NOTED. DISCUSSED DISCHARGE INSTRUCTIONS WITH PT AND PT'S FAMILY. THEY VOICED UNDERSTANDING.
--- NOTE | 2020-01-20 13:30 | NUR ---
PT TAKEN DOWN TO VEHICLE BY WHEELCHAIR. NO S/S OF DISTRESS NOTED. ALL BELONGINGS AND PAPERWORK IN HAND.
== END 2020-01-20 13:30 | disposition home or self-care (01) ==
LOC: D.CATH 08:31
PROVIDERS: ATTEND Internal Medicine Interventional Cardiology
DX: R07.9 Chest pain, unspecified (principal); R94.30 Abnormal result of cardiovascular function study, unspecified; J44.9 Chronic obstructive pulmonary disease, unspecified; Z72.0 Tobacco use; K21.9 Gastro-esophageal reflux disease without esophagitis; R00.2 Palpitations; R00.0 Tachycardia, unspecified; R06.09 Other forms of dyspnea

== ENCOUNTER 2020-04-08 19:00 | Outpatient (CLI) | payer MEDICARE ==
[2020-01-20 10:11] VITALS: BMI 36.4
[~2020-04-08 19:00] MED LIST changes: +AZELASTINE HCL6 ML EACH EYE; +BYSTOLIC20 MG PO; +TRELEGY ELLIPT1 EACH INH
== END 2020-04-08 23:59 | disposition home or self-care (01) ==
LOC: D.MAMMO 19:00
PROVIDERS: ATTEND Clinical Nurse Specialist Adult Health
DX: Z12.31 Encounter for screening mammogram for malignant neoplasm of breast (principal)

== ENCOUNTER 2020-05-24 12:24 | Inpatient (IN) | payer MEDICARE, MEDICAID ==
[~2020-05-24] VITALS: Ht 162.6 cm; Wt 73.6 kg
[2020-05-24 12:54] LABS: BASOPHILS 0.1 % (0-2); EOSINOPHILS 1.7 % (0-7); HEMATOCRIT 37.6 % (36.0-48.0); HEMOGLOBIN 11.4 g/dL (12-16); IMMATURE GRANULOCYTES 0.3 % (0-5); LYMPHOCYTES 18.3 % (15-50); MCHC 30.3 g/dL (31.0-37.0); MCV 92.4 fL (80.0-100.0); MEAN PLATELET VOLUME 8.6 fL (7.4-10.4); MONOCYTES 7.1 % (2-11); NEUTROPHILS 72.5 % (40-80); PLATELET COUNT 212 10x3/uL (130-400); RBC 4.07 10x6/uL (4.00-5.40); WBC 11.9 10x3/uL (4.8-10.8)
--- NOTE | 2020-05-24 13:00 | NUR ---
RESPIRATORY CALLED FOR UPDRAFT AND ABG'S
[2020-05-24 13:04] LABS: APTT 24.1 SECONDS (22.8-39.4); INR 0.89 (0.85-1.17)
[2020-05-24 13:08] LABS: CALC OSMOLALITY 282 mosm/kg (275-300); CALCIUM 8.6 mg/dL (8.5-10.1); CARBON DIOXIDE 29.6 mmol/L (21.0-32.0); CHLORIDE - SERUM 107 mmol/L (98-107); GLUCOSE 122 mg/dL (74-106); POTASSIUM - SERUM 4.2 mmol/L (3.5-5.1); SODIUM 140 mmol/L (136-145); UREA NITROGEN 22 mg/dL (7-18); eGFR NON AFRICAN AMERICAN 60 mL/min (90-120)
[2020-05-24] MEDS ORDERED: CARTIA XT180 MG PO (13:12)
[2020-05-24 13:26] LABS: ALKALINE PHOSPHATASE 66 U/L (30-120); ALT (SGPT) 27 U/L (10-68); BILIRUBIN - TOTAL 0.22 mg/dL (0.2-1.3); CKMB 1.5 U/L (0.0-3.6); CREATINE KINASE 68 UL (21-215); PRO BNP 28 pg/mL (0-125); PROTEIN - SERUM 6.2 g/dL (6.4-8.2); TROPONIN-I < 0.017 ng/mL (0.000-0.060)
[2020-05-24 13:50] VITALS: BP 108/64
[2020-05-24 16:12] VITALS: BP 113/60
[2020-05-24 19:43] VITALS: BP 109/53; BMI 27.8
[2020-05-24 20:00] VITALS: BP 100/52
--- NOTE | 2020-05-24 20:00 | NUR ---
PT SITTING UP IN BED WITHOUT DISTRESS, AOX4. O2 3L/NC. FREQUENT COUGH, PT STATES IT HAS BEEN PRODUCTIVE BUT SHE IS NOT COUGHING ANYTHING UP AT THIS TIME. IV RIGHT FA SL. DENIES NEEDS. CL IN REACH, WILL CTM
[2020-05-25 04:00] VITALS: BP 104/63
[2020-05-25 05:22] LABS: BASOPHILS 0 % (0-2); EOSINOPHILS 0 % (0-7); HEMATOCRIT 36.7 % (36.0-48.0); HEMOGLOBIN 11.5 g/dL (12-16); IMMATURE GRANULOCYTES 0.5 % (0-5); MCH 28.6 pg (26.0-34.0); MCHC 31.3 g/dL (31.0-37.0); MCV 91.3 fL (80.0-100.0); MEAN PLATELET VOLUME 9.4 fL (7.4-10.4); MONOCYTES 1.9 % (2-11); NEUTROPHILS 93.6 % (40-80); PLATELET COUNT 249 10x3/uL (130-400); RBC 4.02 10x6/uL (4.00-5.40); RDW 15.8 % (11.5-14.5); WBC 13.8 10x3/uL (4.8-10.8)
[2020-05-25 05:32] LABS: ANION GAP 10.4 mmol/L (8-16); BILIRUBIN - TOTAL 0.33 mg/dL (0.2-1.3); CALCIUM 8.8 mg/dL (8.5-10.1); POTASSIUM - SERUM 4.4 mmol/L (3.5-5.1); PROTEIN - SERUM 6.2 g/dL (6.4-8.2)
--- NOTE | 2020-05-25 07:20 | NUR ---
WALKING ROUNDS COMPLETE, PT RESTING IN BED, O2 IN USE, PT DENIES PAIN OR NEEDS, SR UP X2, CALL LIGHT IN REACH, WILL CONTINUE TO MONITOR
--- NOTE | 2020-05-25 08:10 | NUR ---
GAVE PT SCHEDULED MEDS, NO OTHER NEEDS OR PAIN VOICED, WILL MONITOR
[2020-05-25 09:10] VITALS: BP 128/70
--- NOTE | 2020-05-25 10:00 | NUR ---
STARTED A NEW 20 GAUGE IV TO PT RIGHT FOREARM PER ONE ATTEMPT, PT TOLERATED WELL
[2020-05-25 12:53] VITALS: BP 118/72
[2020-05-25 17:05] VITALS: BP 126/72
[2020-05-25 20:00] VITALS: BP 106/55
[2020-05-26 04:00] VITALS: BP 114/59
[2020-05-26 06:02] LABS: HEMATOCRIT 35.3 % (36.0-48.0); HEMOGLOBIN 10.9 g/dL (12-16); MCHC 30.9 g/dL (31.0-37.0); MCV 90.7 fL (80.0-100.0); MEAN PLATELET VOLUME 8.9 fL (7.4-10.4); PLATELET COUNT 245 10x3/uL (130-400); RBC 3.89 10x6/uL (4.00-5.40); WBC 22.9 10x3/uL (4.8-10.8)
[2020-05-26 06:09] LABS: ALKALINE PHOSPHATASE 57 U/L (30-120); ALT (SGPT) 29 U/L (10-68); BILIRUBIN - TOTAL 0.32 mg/dL (0.2-1.3); CALC OSMOLALITY 279 mosm/kg (275-300); CALCIUM 8.6 mg/dL (8.5-10.1); CHLORIDE - SERUM 106 mmol/L (98-107); CREATININE - SERUM 0.8 mg/dL (0.6-1.3); POTASSIUM - SERUM 4.7 mmol/L (3.5-5.1); PROTEIN - SERUM 6.2 g/dL (6.4-8.2); SODIUM 140 mmol/L (136-145); UREA NITROGEN 14 mg/dL (7-18); eGFR NON AFRICAN AMERICAN 78 mL/min (90-120)
[2020-05-26 06:11] LABS: GLUCOSE 105 mg/dL (74-106)
[2020-05-26 07:09] LABS: MONOCYTES 1 % (2-11); NEUTROPHILS 96 % (40-80); PLATELET ESTIMATE NORMAL
--- NOTE | 2020-05-26 08:01 | NUR ---
ALERT AND ORIENTED. LUNGS CLEAR BILATERALLY. HEART SOUNDS S1 AND S2 HEARD IN ALL BRAND. BOWEL SOUNDS ACTIVE X 4. IV TO RFA PATENT WITHOUT REDNESS. DENIES NEEDS. BED LOW. CALL CHAWLA AND PERSONAL ITEMS IN REACH. WILL CONTINUE TO MONITOR.
[2020-05-26 09:16] VITALS: Ht 162.6 cm; Wt 73.6 kg
[2020-05-26 09:36] VITALS: BP 114/69
--- NOTE | 2020-05-26 10:00 | NUR ---
TELEMETRY ORDER PLACED BY ANITA LEBLANC. SPOKE WITH MARQUES AT [employer] WHO STATES NO MONITORS AVAILABLE.
--- NOTE | 2020-05-26 10:31 | NUR ---
TELEMETRY PLACED ON PATIENT PER ORDER.
[2020-05-26 12:51] VITALS: BP 127/76
[2020-05-26 17:53] VITALS: BP 133/73
--- NOTE | 2020-05-26 18:37 | NUR ---
IV INFILTRATED TO RFA. REMOVED WITH TIP INTACT. RESITED TO [facility] WITH ONE ATTEMPT WITH 22 GAUGE.
[2020-05-26 20:00] VITALS: BP 132/75
--- NOTE | 2020-05-26 20:00 | NUR ---
PATIENT RESTING IN BED CROCHETTING. NO S/S OF ACUTE DISTRESS. NO C/O AT THIS TIME. PATIENT IS ON 3L NASAL CANNULA, AND BIPAP AT HOME. PATIENT HAS A LEFT UPPER ARM NORMAL SALINE @ KVO. IV IS PATENT WITHOUT REDNESS, SWELLING, OR TENDERNESS. PATIENT HAS TELEMETRY ON: 88 NORMAL SINUS. PATIENT IS UP AD ROBERT. CALL LIGHT WITHIN REACH. WILL CONTINUE TO MONITOR.
[2020-05-27] VITALS: BP 131/80
--- NOTE | 2020-05-27 02:05 | NUR ---
I have reviewed this patient and I concur with the Shift Assessment completed by the Licensed Practical Nurse today this shift.
[2020-05-27 04:00] VITALS: BP 141/78
[2020-05-27 05:56] LABS: BASOPHILS 0 % (0-2); EOSINOPHILS 0 % (0-7); HEMATOCRIT 36.1 % (36.0-48.0); HEMOGLOBIN 11.4 g/dL (12-16); IMMATURE GRANULOCYTES 0.6 % (0-5); LYMPHOCYTES 3.9 % (15-50); MCH 28.3 pg (26.0-34.0); MCHC 31.6 g/dL (31.0-37.0); MCV 89.6 fL (80.0-100.0); MEAN PLATELET VOLUME 9.2 fL (7.4-10.4); MONOCYTES 3.2 % (2-11); NEUTROPHILS 92.3 % (40-80); PLATELET COUNT 258 10x3/uL (130-400); RBC 4.03 10x6/uL (4.00-5.40); RDW 15.9 % (11.5-14.5); WBC 17.4 10x3/uL (4.8-10.8)
[2020-05-27 07:03] LABS: ALBUMIN 3.2 g/dL (3.4-5.0); ALKALINE PHOSPHATASE 58 U/L (30-120); ALT (SGPT) 30 U/L (10-68); BILIRUBIN - TOTAL 0.36 mg/dL (0.2-1.3); CALC OSMOLALITY 286 mosm/kg (275-300); CALCIUM 8.9 mg/dL (8.5-10.1); CARBON DIOXIDE 24.6 mmol/L (21.0-32.0); CHLORIDE - SERUM 104 mmol/L (98-107); CREATININE - SERUM 0.8 mg/dL (0.6-1.3); GLUCOSE 114 mg/dL (74-106); POTASSIUM - SERUM 4.7 mmol/L (3.5-5.1); PROTEIN - SERUM 6.1 g/dL (6.4-8.2); SODIUM 142 mmol/L (136-145); UREA NITROGEN 22 mg/dL (7-18); eGFR NON AFRICAN AMERICAN 78 mL/min (90-120)
--- NOTE | 2020-05-27 07:15 | NUR ---
REC'D IN BED AWAKE AND ALERT. RESP EVEN AND UNLABORED WITH NO DISTRESS NOTED. CAN EXPRESS NEEDS AND WANTS. NO C/O NOTED OR VOICED. ASSESSMENT COMPLETED. C/L IN REACH AT BEDSIDE.
[2020-05-27 08:55] VITALS: BP 127/65
[2020-05-27 13:05] VITALS: BP 137/92
[2020-05-27 16:57] VITALS: BP 128/81
--- NOTE | 2020-05-27 18:44 | NUR ---
I have reviewed this patient and I concur with the Shift Assessment completed by the Licensed Practical Nurse today this shift.
--- NOTE | 2020-05-27 20:00 | NUR ---
PATIENT RESTING IN BED CROCHETTING. NO S/S OF ACUTE DISTRESS. NO C/O AT THIS TIME. PATIENT HAS 3L NASAL CANNULA PRN, AND WEARS HOME BIPAP HS. PATIENT HAS A RIGHT HAND IV, SALINE LOC. IV IS PATENT WITHOUT REDNESS, SWELLING, OR TENDNERNESS. PATIENT IS ON TELEMETRY: 74 NORMAL SINUS. PATIENT IS UP ADLIB TO THE BATHROOM. CALL LIGHT WITHIN REACH. WILL CONTINUE TO MONITOR.
[2020-05-27 22:06] VITALS: BP 149/91
[2020-05-28 04:00] VITALS: BP 153/92
--- NOTE | 2020-05-28 04:37 | NUR ---
I have reviewed this patient and I concur with the Shift Assessment completed by the Licensed Practical Nurse today this shift.
[2020-05-28 06:12] LABS: BASOPHILS 0 % (0-2); EOSINOPHILS 0.1 % (0-7); HEMOGLOBIN 11.3 g/dL (12-16); IMMATURE GRANULOCYTES 0.4 % (0-5); MCH 28.2 pg (26.0-34.0); MCHC 31.4 g/dL (31.0-37.0); MCV 89.8 fL (80.0-100.0); MEAN PLATELET VOLUME 9.1 fL (7.4-10.4); MONOCYTES 7.9 % (2-11); NEUTROPHILS 86.6 % (40-80); PLATELET COUNT 253 10x3/uL (130-400); RBC 4.01 10x6/uL (4.00-5.40); RDW 15.7 % (11.5-14.5); WBC 14.1 10x3/uL (4.8-10.8)
[2020-05-28 06:32] LABS: ALBUMIN 3.1 g/dL (3.4-5.0); BILIRUBIN - TOTAL 0.52 mg/dL (0.2-1.3); CALCIUM 8.9 mg/dL (8.5-10.1); CARBON DIOXIDE 28.4 mmol/L (21.0-32.0); CREATININE - SERUM 0.9 mg/dL (0.6-1.3); POTASSIUM - SERUM 4.4 mmol/L (3.5-5.1); PROTEIN - SERUM 6.1 g/dL (6.4-8.2)
--- NOTE | 2020-05-28 09:01 | NUR ---
RESTING IN BED, NO DISTRESS NOTED, SL IN PLACE, O2 PER NC, CONT TO MONITOR
[2020-05-28 09:49] VITALS: BP 128/71
[2020-05-28] MEDS ORDERED: NICODERM CQ1 EAC1 TRANSDERM (10:20)
[2020-05-28] MEDS ORDERED: OMNICEF300 MG PO (10:20)
[2020-05-28] MEDS ORDERED: FLORAJEN3 CAPS460 MG PO (10:20)
[2020-05-28] MEDS ORDERED: ATROVENT 0.02%2.5 ML UPD (10:20)
[2020-05-28] MEDS ORDERED: PERFOROMIS20 MCG/21 INH (10:20)
[2020-05-28] MEDS ORDERED: MULTAQ400 MG PO (10:20)
[2020-05-28] MEDS ORDERED: PREDNISONE10 MG PO (10:20)
[2020-05-28] MEDS ORDERED: PULMICORT0.5 MG/21 UPD (10:20)
[2020-05-28] MEDS ORDERED: ADOXA100 MG PO (10:20)
[2020-05-28] MEDS ORDERED: NYSTATIN100000 UN4 PO (10:20)
[2020-05-28] MEDS ORDERED: FLUTICASONE PRO16 GM NASAL (10:20)
--- NOTE | 2020-05-28 11:12 | MORECARE ---
CASE MANAGEMENT DISCHARGE SUMMARY PATIENT: AYAKA BRANTLEY UNIT: [id number] ADM DATE: 05/24/20 AGE: 60 : 64 SEX: F ROOM/BED: D.2219 AUTHOR: TOR DUARTE PHYSICIAN: REFERRING PHYSICIAN: CHIO MAZA MD DATE OF SERVICE: 05/28/20 Discharge Plan Patient Name: AYAKA BRANTLEY Facility: [facility]:[place] : 1960 Planned Disposition: Home Anticipated Discharge Date: Discharge Date: Expected LOS: Initial Reviewer: [email or web address] Initial Review Date: 05/24/2020 Generated: 05/28/20 12:11 pm DCPIA - Discharge Planning Initial Assessment Updated by [email or web address]: Jeanine Justin on 05/28/20 11:08 am * Is the patient Alert and Oriented? Yes * How many steps to enter\exit or inside your home? * PCP ADIN * Pharmacy [facility] - [address] * Preadmission Environment Home Alone * ADLs Independent * Equipment Walker * Other Equipment 02 HOME / PORTABLE, NEBULIZER, BIPAP * List name and contact numbers for known caregivers / representatives who currently or will assist patient after discharge: XIN KAPADIA - [phone] * Verbal permission to speak to the caregivers and representatives has been obtained from the patient. Yes * Community resources currently utilized None * Additional services required to return to the preadmission environment? No * Can the patient safely return to the preadmission environment? Yes * Has this patient been hospitalized within the prior 30 days at any hospital? No Patient Name: AYAKA BRANTLEY Page [id number] at 1112 All edits/amendments must be made on the electronic document DICTATION DATE: 05/28/20 111 PLASTIC MACHINE OPERATOR: GRACIA 05/28/20 1112 RPT#: [id number] DC DATE: STATUS: ADM IN [facility] [address] [place] [address] END OF REPORT
--- NOTE | 2020-05-28 11:19 | MORECARE ---
CASE MANAGEMENT DISCHARGE SUMMARY PATIENT: AYAKA BRANTLEY UNIT: [id number] ADM DATE: 05/24/20 AGE: 60 : 64 SEX: F ROOM/BED: D.2219 AUTHOR: FELICIA,DOC PHYSICIAN: REFERRING PHYSICIAN: CHIO MAZA MD DATE OF SERVICE: 05/28/20 Discharge Plan Patient Name: AYAKA BRANTLEY Facility: [facility]:[place] : 1960 Planned Disposition: Home Anticipated Discharge Date: Discharge Date: Expected LOS: Initial Reviewer: [email or web address] Initial Review Date: 05/24/2020 Generated: 05/28/20 12:18 pm Comments DCP- Discharge Planning Updated by [email or web address]: Jeanine Justin on 05/28/20 10:[address] Patient Name: AYAKA BRANTLEY Admission Status: ER Accout number: [id number] Admission Date: 05-24-2020 : 1960 Admission Diagnosis:ACUTE AND CHRONIC RESPIRATORY FAILURE WITH HYPOXIA Attending: LORRI Current LOS: 4 Anticipated DC Date: Planned Disposition: Home Primary Insurance: [facility] [employer] Discharge Planning Comments: CM met with patient to complete initial dc planning assessment. CM educated patient on the CM role and verbal consent given by patient to complete assessment. Patient lives at home alone but has family that lives close. Patient is independent. At discharge patient plans to return home and feels this is a safe discharge. CM discussed availability of home health, rehab services, and medical equipment. Patient states that she has home 02, nebulizer, and Bipap with [employer]. Patient will have family to transport home. Patient denied known discharge needs at this time. D/C IMM signed 05/28/20 @ 1039. CM will continue to follow and will assist as needed with dc plans/needs. Adoption Coordinator: Jeanine Justin DCPIA - Discharge Planning Initial Assessment Updated by [email or web address]: Jeanine Justin on 05/28/20 11:08 am * Is the patient Alert and Oriented? Yes * How many steps to enter\exit or inside your home? * [facility]CP ADIN * [facility] [address] * Preadmission Environment Home Alone * ADLs Independent * Equipment Walker * Other Equipment 02 HOME / PORTABLE, NEBULIZER, BIPAP * List name and contact numbers for known caregivers / representatives who currently or will assist patient after discharge: XIN KAPADIA - [phone] * Verbal permission to speak to the caregivers and representatives has been obtained from the patient. Yes * Community resources currently utilized None * Additional services required to return to the preadmission environment? No * Can the patient safely return to the preadmission environment? Yes * Has this patient been hospitalized within the prior 30 days at any hospital? No Coverage Notice Reviewer: [email or web address] Mason Justin Notice Issued Date-Time: 05/28/2020 10:39 Notice Type: IM Discharge Notice Notice Delivered To: Patient Relationship to Patient: Self Assault Amphibious Vehicle Crewman Name: Delivery Method: HAND - Hand Delivered Eliza Days: Prior Verbal Notification: Recipient Understood Notice: Yes Recipient Signature: Yes Med Rec Note Co-signed by Attending: Coverage Notice Comment: Last DP export: 05/28/20 10:12 am Patient Name: AYAKA BRANTLEY Page [phone] at 1119 All edits/amendments must be made on the electronic document DICTATION DATE: 05/28/20 1118 SENIOR ENGINEERING MANAGER: GRACIA 05/28/20 1118 RPT#: [id number] DC DATE: STATUS: ADM IN [facility] [address] [place] [address] END OF REPORT
--- NOTE | 2020-05-28 11:45 | NUR ---
IV REMOVED, REVIEWED DC MEDS, VOICED NO CONCERNS
--- NOTE | 2020-05-28 12:00 | NUR ---
TAKEN FROM HOSPITAL PER W/C
--- NOTE | 2020-05-28 12:59 | MORECARE ---
CASE MANAGEMENT DISCHARGE SUMMARY PATIENT: AYAKA BRANTLEY UNIT: [id number] ADM DATE: 05/24/20 AGE: 60 : 64 SEX: F ROOM/BED: D.2219 AUTHOR: FELICIA,DOC PHYSICIAN: REFERRING PHYSICIAN: CHIO MAZA MD DATE OF SERVICE: 05/28/20 Discharge Plan Patient Name: AYAKA BRANTLEY Facility: [facility]:[place] : 1960 Planned Disposition: Home Anticipated Discharge Date: Discharge Date: 05/28/2020 Expected LOS: Initial Reviewer: [id number] Initial Review Date: 05/24/2020 Generated: 05/28/20 1:58 pm Comments DCP- Discharge Planning Updated by [email or web address]: Jeanine Justin on 05/28/20 10:[address] Patient Name: AYAKA BRANTLEY Admission Status: ER Accout number: [id number] Admission Date: 05-24-2020 : 1960 Admission Diagnosis:ACUTE AND CHRONIC RESPIRATORY FAILURE WITH HYPOXIA Attending: LORRI Current LOS: 4 Anticipated DC Date: Planned Disposition: Home Primary Insurance: [facility] [employer] Discharge Planning Comments: CM met with patient to complete initial dc planning assessment. CM educated patient on the CM role and verbal consent given by patient to complete assessment. Patient lives at home alone but has family that lives close. Patient is independent. At discharge patient plans to return home and feels this is a safe discharge. CM discussed availability of home health, rehab services, and medical equipment. Patient states that she has home 02, nebulizer, and Bipap with [facility]. Patient will have family to transport home. Patient denied known discharge needs at this time. D/C IMM signed 05/28/20 @ 1039. CM will continue to follow and will assist as needed with dc plans/needs. Electronic Warfare Technician: Jeanine Justin DCPIA - Discharge Planning Initial Assessment Updated by [email or web address]: Jeanine Justin on 05/28/20 11:08 am * Is the patient Alert and Oriented? Yes * How many steps to enter\exit or inside your home? * PCP ADIN * Pharmacy [facility] * Preadmission Environment Home Alone * ADLs Independent * Equipment Walker * Other Equipment 02 HOME / PORTABLE, NEBULIZER, BIPAP * List name and contact numbers for known caregivers / representatives who currently or will assist patient after discharge: XIN KAPADIA - [phone] * Verbal permission to speak to the caregivers and representatives has been obtained from the patient. Yes * Community resources currently utilized None * Additional services required to return to the preadmission environment? No * Can the patient safely return to the preadmission environment? Yes * Has this patient been hospitalized within the prior 30 days at any hospital? No Coverage Notice Reviewer: [id number] Mason Justin Notice Issued Date-Time: 05/28/2020 10:39 Notice Type: IM Discharge Notice Notice Delivered To: Patient Relationship to Patient: Self Harness Mender Name: Delivery Method: HAND - Hand Delivered Eliza Days: Prior Verbal Notification: Recipient Understood Notice: Yes Recipient Signature: Yes Med Rec Note Co-signed by Attending: Coverage Notice Comment: Last DP export: 05/28/20 10:19 am Patient Name: AYAKA BRANTLEY Page [id number] at 1259 All edits/amendments must be made on the electronic document DICTATION DATE: 05/28/20 1258 SURGICAL SUPPLY ASSISTANT: GRACIA 05/28/20 1258 RPT#: [id number] DC DATE:05/28/20 STATUS: DIS IN [facility] [address] [place] [address] END OF REPORT
== END 2020-05-28 12:00 | disposition home or self-care (01) | DRG 190 ==
LOC: D.ER 12:24 → D.MS 13:20
PROVIDERS: Family Medicine; ADMIT Family Medicine; ATTEND Family Medicine
DX: J44.1 Chronic obstructive pulmonary disease with (acute) exacerbation (principal); J96.21 Acute and chronic respiratory failure with hypoxia; J96.22 Acute and chronic respiratory failure with hypercapnia; K21.9 Gastro-esophageal reflux disease without esophagitis; F41.8 Other specified anxiety disorders; M19.90 Unspecified osteoarthritis, unspecified site; J30.9 Allergic rhinitis, unspecified; Z72.0 Tobacco use; E55.9 Vitamin D deficiency, unspecified; G25.81 Restless legs syndrome; G47.36 Sleep related hypoventilation in conditions classified elsewhere; R00.0 Tachycardia, unspecified; F32.9 Major depressive disorder, single episode, unspecified

== ENCOUNTER → 2020-12-19 14:40 | Outpatient (CLI) | payer MEDICARE, MEDICAID ==
[2020-10-31 13:16] VITALS: BMI 40.0
[~2020-12-19 14:40] MED LIST changes: +ADOXA100 MG PO; +ATROVENT 0.02%2.5 ML UPD; +AZITHROMYCIN500 MG PO; +CARTIA XT180 MG PO; +FLORAJEN3 CAPS460 MG PO; +MULTAQ400 MG PO; +NICODERM CQ1 EAC1 TRANSDERM; +NYSTATIN100000 UN4 PO; +PERFOROMIS20 MCG/21 INH
== END | disposition home or self-care (01) ==
LOC: D.LAB 14:40
PROVIDERS: ATTEND Internal Medicine Pulmonary Disease
DX: J44.9 Chronic obstructive pulmonary disease, unspecified (principal)

== ENCOUNTER → 2020-12-23 08:50 | Outpatient (CLI) | payer MEDICARE, MEDICAID ==
[2020-10-31 13:16] VITALS: BMI 40.0
== END | disposition home or self-care (01) ==
LOC: D.RT 08:50
PROVIDERS: ATTEND Internal Medicine Pulmonary Disease
DX: J20.9 Acute bronchitis, unspecified (principal); J44.9 Chronic obstructive pulmonary disease, unspecified

== ENCOUNTER 2021-01-30 13:19 | Emergency (ER) | payer MEDICARE, MEDICAID ==
[~2021-01-30] VITALS: Ht 162.6 cm; Wt 100.9 kg
[2021-01-30 13:26] VITALS: Ht 162.6 cm; Wt 100.9 kg
[2021-01-30 14:12] LABS: APTT 25.4 SECONDS (22.8-39.4); CALC OSMOLALITY 278 mosm/kg (275-300); CARBON DIOXIDE 31.7 mmol/L (21.0-32.0); CHLORIDE - SERUM 103 mmol/L (98-107); CREATININE - SERUM 1.1 mg/dL (0.6-1.3); GLUCOSE 79 mg/dL (74-106); INR 1.14 (0.85-1.17); POTASSIUM - SERUM 3.4 mmol/L (3.5-5.1); PROTIME 13.6 SECONDS (11.6-15.0); SODIUM 141 mmol/L (136-145); UREA NITROGEN 10 mg/dL (7-18); eGFR NON AFRICAN AMERICAN 54 mL/min (90-120)
[2021-01-30 14:27] LABS: ALBUMIN 3.2 g/dL (3.4-5.0); ALKALINE PHOSPHATASE 68 U/L (30-120); ALT (SGPT) 19 U/L (10-68); BILIRUBIN - TOTAL 0.44 mg/dL (0.2-1.3); CKMB 0.7 U/L (0.0-3.6); CREATINE KINASE 91 UL (21-215); PRO BNP 27 pg/mL (0-125); PROTEIN - SERUM 6.5 g/dL (6.4-8.2); TROPONIN-I < 0.017 ng/mL (0.000-0.060)
[2021-01-30 14:32] LABS: BASOPHILS 0.7 % (0-2); EOSINOPHILS 2.6 % (0-7); HEMATOCRIT 38.4 % (36.0-48.0); HEMOGLOBIN 11.8 g/dL (12-16); IMMATURE GRANULOCYTES 0.3 % (0-5); LYMPHOCYTE ABS# 1.31 10x3/uL (1.18-3.74); LYMPHOCYTES 22.5 % (15-50); MCH 26.9 pg (26.0-34.0); MCHC 30.7 g/dL (31.0-37.0); MCV 87.7 fL (80.0-100.0); MEAN PLATELET VOLUME 8.9 fL (7.4-10.4); MONOCYTES 9.3 % (2-11); NEUTROPHIL ABS# 3.75 10x3/uL (1.56-6.13); NEUTROPHILS 64.6 % (40-80); RBC 4.38 10x6/uL (4.00-5.40); WBC 5.8 10x3/uL (4.8-10.8)
[2021-01-30 14:39] LABS: PLATELET COUNT 264 10x3/uL (130-400)
[2021-01-30] MEDS ORDERED: ZPAK PO (16:57)
[2021-01-30 17:29] VITALS: BP 146/75
== END 2021-01-30 17:29 | disposition home or self-care (01) ==
LOC: D.ER 13:19
PROVIDERS: Emergency Medicine
DX: J44.1 Chronic obstructive pulmonary disease with (acute) exacerbation (principal); K21.9 Gastro-esophageal reflux disease without esophagitis; Z72.0 Tobacco use